=== PATIENT | male | born 1955 | race Caucasian/White ===

== ENCOUNTER 2022-09-05 11:26 | Day surgery (SDC) | payer BC, MEDICARE, SELFPAY ==
[2022-09-05] VITALS (14 sets, daily range): BP systolic 117–161; BP diastolic 84–122; PULSE 75–101; RESP 18–20; O2SAT 92–99; BMI 32.1
--- NOTE | 2022-09-05 | IR_ITS ---
APPROVED REPORT Patient Location: Outpatient Medical Assistant Internal Medicine: LULA Haas RT (R) PROCEDURES Selective coronary angiogram Drug-eluting stent deployment to the mid LAD INDICATION Systolic congestive heart failure, Coronary artery disease, Cardiomyopathy ejection fraction 25% Informed consent was obtained prior to the procedure. COMPLICATIONS None Estimated Blood Loss: Less than 10 mls TECHNIQUE One percent lidocaine used to anesthetize the right anterior aspect of the wrist. The right radial artery was accessed via the Seldinger technique. A 6 Turkmen sheath was placed in the right radial artery. 150 mg magnesium sulfate, 800 mcg of nitroglycerin, 1mg Lidocaine and 5000 U Heparin were given through the arterial sheath. The papa catheter was also used to perform selective coronary angiography. At the end the diagnostic angiogram therapeutic heparin was administered giving a therapeutic ACT and an EBU guide catheter was placed in the left main artery followed by Choice PT extra-support wire being placed distally into the LAD. A 2.5 x 34 mm resolute Mil stent was deployed at 12 kalli reducing the severe stenosis to 0%. NELLY-3 flow was present before and after the procedure. At the end of the procedure the apparatus was removed the sheath was removed good hemostasis was achieved using TR banding patient was transferred to the postop holding area in stable condition ANGIOGRAPHIC RESULTS The left main artery Has a smooth ostial 10 to 20% stenosis The left anterior descending artery Has mild 10% proximal mid vessel luminal irregularities followed by a mid vessel 80% with additional 50% stenoses. There is a moderate-sized high first diagonal artery which bifurcates into a medium size superior branch and a small to medium size inferior branch which is just under 2 mm in diameter. The inferior branch has tandem proximal 90% stenoses which originates immediately after the vessel bifurcates The circumflex artery Is a large dominant vessel and gives rise to a moderate sized ramus intermedius which has proximal 10 to 20% stenoses. The circumflex artery itself is a large vessel with 10% distal stenoses The right coronary artery Is a nondominant vessel is small in caliber and has proximal 10% stenosis The YU ventriculogram reveals Not performed The left ventricular end-diastolic pressure Not measured IMPRESSION Severe mid LAD disease as described above Successful stenting of the mid LAD severe disease reduced to 0% with 1 drug-eluting stent Persistent disease in a high first diagonal artery in which the 90% stenoses occur in a vessel less than 2 mm in diameter which is too small for drug-eluting stent PLAN 1. Plavix 75 mg daily plus aspirin 81 mg daily plus Eliquis 5 mg twice daily for 30 days 2. After 30 days continue Plavix 75 mg daily plus Eliquis 5 mg twice daily 3. LDL less than 55 to be achieved with high intensity statin. Start atorvastatin 20 mg daily for LDL of 104 4. Double carvedilol to 6.25 twice daily for better A-fib rate control as well as start Entresto 5. Placement of LifeVest prior to discharge home today or place LifeVest no later than tomorrow as an outpatient 6. Avoidance of tobacco products 7. Risk factor modification Electronically signed by : Miki Jama MD 09/05/2022 13:04:47
[2022-09-05 12:05] LABS: Chloride 104 mmol/L (98-107); Potassium 4.8 mmoL/L (3.5-5.1); Sodium 137 mmol/L (136-145)
[2022-09-05 12:08] LABS: Blood Urea Nitrogen 20 mg/dl (9-20); Creatinine Clearance Estimated 114 mL/min (50-200); Estimated Glomerular Filt Rate 75 ml/min (>60); GFR (African American) 90 ML/MIN (>60)
[2022-09-05 12:09] LABS: Anion Gap 11.8 mEq/L (5-15); Calcium 9.1 mg/dl (8.4-10.2); Carbon Dioxide 26 mmol/L (22.0-30.0); Glucose 97 mg/dl (74-100)
[2022-09-05 12:12] LABS: Basophils # 0.1 K/mm3 (0-0.2); Basophils % 0.7 % (0.1-2.0); Eosinophils # 0.3 K/mm3 (0.0-0.4); Eosinophils % 4.2 % (0.1-12.0); Hemoglobin 16.2 g/dL (14.1-18.0); Lymphocytes # 2.5 K/mm3 (0.7-4.5); Lymphocytes % 31.3 % (10-50); Mean Corpuscular Hemoglobin 30.9 pg (27.0-31.2); Mean Corpuscular Volume 93.6 fl (80-94); Mean Platelet Volume 9.4 fl (7.4-10.4); Monocytes # 0.4 K/mm3 (0.1-1.0); Monocytes % 4.9 % (1.7-9.3); Neutrophils # 4.7 K/mm3 (1.8-7.8); Platelet Count 185 K/mm3 (142-424); Red Blood Count 5.23 M/mm3 (4.60-6.20); Red Cell Distribution Width 14.2 % (11.5-17.5)
--- NOTE | 2022-09-05 16:14 | HMH.PHACL ---
[facility] Project Scheduler Discharge Med Caseworker Protective Services: Yossi eHrnandez has received discharge medication counseling on the following medications: -ASPIRIN (FOR CAD, DAILY, BLEED/BRUISE RISK, BUMP HEAD = GO TO ER TO RULE OUT HEAD BLEED, BLEED LOCATION AND APPEARANCE) -BRILINTA (BLOOD THINNER, TWICE DAILY, SOB POSSIBLE, BLEED/BRUISE RISK, BUMP HEAD = GO TO ER TO RULE OUT HEAD BLEED, BLEED LOCATION AND APPEARANCE) -ATORVASTATIN (FOR CHOLESTEROL, TAKE AT BEDTIME, MUSCLE PAIN/WEAKNESS POSSIBLE) -CARVEDILOL (FOR BLOOD PRESSURE, STOP 6.25 MG AND START 12.5 MG TWICE DAILY, DIZZINESS, LIGHTHEADEDNESS, SLOWED HEART RATE) -ENTRESTO (ON PREVIOUSLY, NO QUESTIONS) PATIENT AND HAD A FEW QUESTIONS REGARDING MEDICATIONS. FIRST WAS CONCERN WITH SOB AND BRILINTA PATIENT WAS ALREADY SOB. I ASKED SHADI WHO SAID THEY WERE GOING TO SEE HOW PATIENT TOLERATES BEFORE MAKING DECISION ON SWITCH TO PLAVIX. NEXT WAS CONCERN REGARDING BLOOD THINNERS, PATIENT'S THOUGHT SHE RECEIVED SAMPLES FOR XARELTO. PATIENT IS CURRENTLY ON ELIQUIS AND SHE HAD RECEIVED SAMPLES FOR ENTRESTO. ADVISED TO WATCH FOR BLEEDING RISK WHILE TAKING ELIQUIS, BRILINTA, AND ASPIRIN. FINALLY THERE WAS CONCERN REGARDING PATIENT'S DOSE OF CARVEDILOL. PATIENT STATES HE TAKES 3.125 MG AT HOME, BUT THE HOME MEDICATION RECONCILIATION HAD 6.25 MG THE HOME DOSE. SHADI WAS TO CLARIFY WITH DR POTTER IF HE WANTED THE PATIENT TO DOUBLE THE 3.125 MG TO 6.25 MG OR INCREASE TO THE 12.5 MG ORIGINALLY ORDERED. NO FURTHER QUESTIONS WERE PROVIDED AT THIS TIME.
[2022-09-05 16:41] LABS: CATHL Activated Clotting Time 305 SEC (74-125)
== END 2022-09-05 17:30 | disposition home or self-care (01) ==
PROVIDERS: PCP Internal Medicine; Visit Provider Internal Medicine
DX: R94.31 Abnormal electrocardiogram [ECG] [EKG] (principal); I50.20 Unspecified systolic (congestive) heart failure; I48.91 Unspecified atrial fibrillation; Z79.01 Long term (current) use of anticoagulants; I42.9 Cardiomyopathy, unspecified
CPT/HCPCS: 80048; 85025; 85347; 92928; 93454; 99152; 99153; C1725; C1760; C1769; C1876; C9600; J1644; Q9967

== ENCOUNTER → 2022-09-13 08:07 | Outpatient (CLI) | payer BC, SELFPAY ==
[2022-09-13 09:01] LABS: Hemoglobin A1C 5.1 % (4.0-6.0)
--- NOTE | 2022-09-13 10:19 | CT_ITS ---
FINAL REPORT TECHNIQUE: The patient was injected with IV contrast. Axial images were obtained through the chest in a PE protocol. 3-D reconstruction images were also performed. Individualized dose reduction techniques using automated exposure control or adjustment of the MA and/or KV according to patient's size were employed. CLINICAL HISTORY: dyspnea FINDINGS: Mediastinal vasculature is adequately opacified. No pulmonary artery filling defects are identified to suggest PE. There is no aortic dissection. There is no axillary adenopathy. There is no hilar or mediastinal adenopathy. The heart size is normal. There is no pericardial or pleural effusion. There is an 8 mm noncalcified nodule in the posterior left upper lobe well seen on image 111. The gallbladder is absent. There is a large benign-appearing cyst in left kidney measuring 9.3 x 7.0 cm. IMPRESSION: No pulmonary embolus or dissection. Left upper lobe nodule. Recommend 3 month follow-up as per Fleischners criteria. Reviewed, Interpreted and Dictated by Lele Maradiaga MD Transcribed by Shannon Mixon Authenticated and [facility]
== END ==
PROVIDERS: PCP Internal Medicine; Visit Provider Internal Medicine
DX: R06.00 Dyspnea, unspecified (principal); R06.81 Apnea, not elsewhere classified; I50.20 Unspecified systolic (congestive) heart failure; I42.9 Cardiomyopathy, unspecified; I48.91 Unspecified atrial fibrillation; E78.5 Hyperlipidemia, unspecified; R73.9 Hyperglycemia, unspecified; R94.31 Abnormal electrocardiogram [ECG] [EKG]; R06.83 Snoring
CPT/HCPCS: 36415; 71275; 83036; Q9967

== ENCOUNTER 2022-09-13 13:34 | Outpatient (RCR) | payer BC, MEDICARE, SELFPAY | END 2022-12-02 15:00 | disposition home or self-care (01) | LOC: PT 13:34 | PROVIDERS: Visit Provider Internal Medicine | DX: I25.10 Atherosclerotic heart disease of native coronary artery without angina pectoris (principal); Z95.5 Presence of coronary angioplasty implant and graft | CPT/HCPCS: 93798 ==

== ENCOUNTER → 2022-09-19 11:07 | Outpatient (CLI) | payer BC, SELFPAY | PROVIDERS: PCP Internal Medicine; Visit Provider Internal Medicine | DX: G47.33 Obstructive sleep apnea (adult) (pediatric) (principal); R06.83 Snoring; R06.00 Dyspnea, unspecified; I42.9 Cardiomyopathy, unspecified; I50.20 Unspecified systolic (congestive) heart failure | CPT/HCPCS: G0399 ==

== ENCOUNTER → 2022-10-11 13:27 | Outpatient (CLI) | payer BC, SELFPAY | PROVIDERS: PCP Internal Medicine; Visit Provider Internal Medicine | DX: R06.00 Dyspnea, unspecified (principal); I50.20 Unspecified systolic (congestive) heart failure; I25.10 Atherosclerotic heart disease of native coronary artery without angina pectoris; I42.9 Cardiomyopathy, unspecified; I48.91 Unspecified atrial fibrillation; E78.5 Hyperlipidemia, unspecified; R06.81 Apnea, not elsewhere classified; R06.83 Snoring; R94.31 Abnormal electrocardiogram [ECG] [EKG] | CPT/HCPCS: 93308 ==

== ENCOUNTER 2022-10-14 07:33 | Day surgery (SDC) | payer BC, SELFPAY ==
[2022-10-14 07:41] VITALS: BMI 33.0
[2022-10-14 07:48] VITALS: BP 124/76; PULSE 73; PULSE 80; RESP 20; O2SAT 97
[2022-10-14 10:32] VITALS: BP 96/46; PULSE 70; RESP 12; O2SAT 97
--- NOTE | 2022-10-14 10:33 | ECG_ITS ---
APPROVED REPORT Exam: Resting ECG HR:61 bpm ECG Measurements Heart Rate 61 AXES SC 177 P 2 QRSd 110 QRS -59 QT 433 T 47 QTc 437 Conclusion SINUS RHYTHM WITH FREQUENT SUPRAVENTRICULAR PREMATURE COMPLEXES LEFT AXIS DEVIATION [QRS AXIS < -30] LOW QRS VOLTAGE IN PRECORDIAL LEADS [QRS DEFLECTION < 1.0 mV IN CHEST LEADS] INCOMPLETE RIGHT BUNDLE BRANCH BLOCK [90+ ms QRS DURATION, TERMINAL R IN V1/V2, 40+ ms S IN I/aVL/V4/V5/V6] POSSIBLE ANTERIOR MYOCARDIAL INFARCTION , OF INDETERMINATE AGE [30 ms Q WAVE IN V3/V4, OR R < 0.2 mV IN V4] ABNORMAL ECG UNCONFIRMED REPORT Electronically signed by : Aakash Garcia MD 10/15/2022 15:52:57
[2022-10-14 10:35] VITALS: PULSE 70
[2022-10-14 10:45] VITALS: BP 87/48; PULSE 55; RESP 16; O2SAT 95
[2022-10-14 10:52] VITALS: BP 109/61; PULSE 57; RESP 16; O2SAT 95
--- NOTE | 2022-10-31 14:18 | P.PCN_ITS ---
[facility] Cardioversion Cardioversion Date: 10/14/22 Provider:: Miki Jama MD Procedure Performed:: Electrical cardioversion Diagnosis:: Atrial fibrillation Procedure Summary:: Patient was brought to the cardiac Hog Grader as an outpatient.? After informed consent was obtained, anesthesia provided sedation and patient received a single 200 J synchronized shock converting her from atrial fibrillation to sinus rhythm.? Patient tolerated the procedure well with no complications. Complications:: None Conculsion:: Successful electrical cardioversion from atrial fibrillation to sinus rhythm.
== END 2022-10-14 10:54 | disposition home or self-care (01) ==
PROVIDERS: PCP Internal Medicine; Visit Provider Internal Medicine
DX: I48.91 Unspecified atrial fibrillation (principal); I25.10 Atherosclerotic heart disease of native coronary artery without angina pectoris
CPT/HCPCS: 92960; 93005

== ENCOUNTER → 2022-12-21 13:35 | Outpatient (CLI) | payer MEDICARE, BC, SELFPAY ==
--- NOTE | 2022-12-21 14:11 | US_ITS ---
FINAL REPORT TECHNIQUE: Ultrasound images of the kidneys and bladder were obtained. CLINICAL HISTORY: Cyst of right kidney, acquired COMPARISON: None FINDINGS: The right kidney measures 10.8 cm in length. There is an 8.6 cm cyst in the upper pole of the right kidney. There is no hydronephrosis. The left kidney measures 11.9 cm in length. It is normal in echogenicity. There is no hydronephrosis. The urinary bladder is unremarkable. IMPRESSION: 8.6 cm right renal cyst. Reviewed, Interpreted and Dictated by Andrey Nguyen III, MD Transcribed by Meaghan Gaming Authenticated and [facility]
--- NOTE | 2022-12-21 14:11 | CT_ITS ---
FINAL REPORT TECHNIQUE: Axial images were obtained from the lung apex to the mid abdomen by computed tomography. Coronal reformatted images were obtained. This study was performed with techniques to keep radiation doses as low as reasonably achievable, (ALARA). Individualized dose reduction techniques using automated exposure control or adjustment of mA and/or kV according to the patient''s size were employed. CLINICAL HISTORY: pulm nodule COMPARISON: CT angiogram of the chest dated 09/13/2022 FINDINGS: There is no axillary adenopathy. There is no hilar or mediastinal adenopathy. Heart size is normal, however severe coronary artery calcifications are present.. There is no pericardial or pleural effusion. The lateral left upper lobe nodule noted on the prior CT of September is stable, and has not changed in size or appearance since that time. No new nodules or masses are identified. There is an 8.5 cm probable cyst partially imaged in the lower pole of the left kidney that appears stable since the prior CT. IMPRESSION: 8 mm lateral left upper lobe nodule, stable. Would recommend 6-month follow-up chest CT for further evaluation. Severe coronary artery calcifications. Left renal probable cyst was partially imaged on this exam but appears overall unchanged since September. Reviewed, Interpreted and Dictated by Andrey Nguyen III, MD Transcribed by Alana Jin Authenticated and [facility]
== END ==
PROVIDERS: PCP Internal Medicine; Visit Provider Internal Medicine
DX: I50.20 Unspecified systolic (congestive) heart failure (principal); R06.00 Dyspnea, unspecified; R91.8 Other nonspecific abnormal finding of lung field; N28.1 Cyst of kidney, acquired
CPT/HCPCS: 71250; 76770; 93308

== ENCOUNTER 2023-07-04 12:49 | Outpatient (CLI) | payer MEDICARE, SELFPAY ==
--- NOTE | 2023-07-04 13:02 | CT_ITS ---
FINAL REPORT TECHNIQUE: Axial images were obtained through the chest without contrast. CLINICAL HISTORY: Pulmonary nodules-maintenance fu 6month followup COMPARISON: 12/21/2022 FINDINGS: CT CHEST WITHOUT CONTRAST: Dense coronary artery calcifications are present. There is a left upper lobe nodule seen best in image #26 of series 2, measuring 7 mm in size. This was seen on the prior CT of December 2022 and is stable. There is a left lower pole renal cyst present measuring 9 x 7 cm, also stable in appearance. IMPRESSION: Left upper lobe nodule, stable since the prior CT of December 2022. Left lower pole renal cyst, also stable. Dense coronary artery calcifications are present. Reviewed, Interpreted and Dictated by Lele Maradiaga MD Transcribed by Alana Jin Authenticated and . [facility]
[2023-07-04 16:08] LABS: Alanine Aminotransferase 29 U/L (12-78); Alkaline Phosphatase 122 U/L (38-126); Aspartate Amino Transferase 29 U/L (17-59); Bilirubin,Direct 0.1 mg/dl (0.0-0.4); Bilirubin,Indirect 0.7 mg/dL (0.0-0.9); Bilirubin,Total 0.8 mg/dl (0.2-1.3); Bilirubin,Unconjugated 0.7 mg/dL (0.0-1.1); Chol/HDL Ratio 3.1 (1-3.5); Cholesterol 129 mg/dl (140-200); Creatine Kinase 47 U/L (55-170); HDL Cholesterol 42 mg/dl (40-60); Total Protein,Serum 6.8 g/dl (6.3-8.2); Triglycerides 43 mg/dl (30-150); VLDL Cholesterol 9 mg/dL (0-40)
[2023-07-04 16:19] LABS: Direct LDL Cholesterol 72.95 mg/dL (100-129)
== END 2023-07-04 23:59 ==
PROVIDERS: PCP Internal Medicine; Visit Provider Internal Medicine
DX: R91.8 Other nonspecific abnormal finding of lung field (principal); E78.5 Hyperlipidemia, unspecified; I25.10 Atherosclerotic heart disease of native coronary artery without angina pectoris; I48.91 Unspecified atrial fibrillation; I50.20 Unspecified systolic (congestive) heart failure; N28.1 Cyst of kidney, acquired; R53.83 Other fatigue; R94.31 Abnormal electrocardiogram [ECG] [EKG]; Z87.891 Personal history of nicotine dependence
CPT/HCPCS: 36415; 71250; 80061; 80076; 82550

== ENCOUNTER 2023-08-02 11:13 | Outpatient (CLI) | payer MEDICARE, SELFPAY ==
--- NOTE | 2023-08-02 11:17 | US_ITS ---
FINAL REPORT CLINICAL HISTORY: PVD, CAD, previous smoker, HTN, HLD, bilateral claudication with exercise. Ordered as a stress BRIAN FINDINGS: ANKLE-BRACHIAL PRESSURE INDICES Pressure indices are as follows: RIGHT LOWER EXTREMITY: Ankle-brachial pressure index: 1.4 Comments: Normal LEFT LOWER EXTREMITY: Ankle-brachial pressure index: 1.2 Comments: Normal IMPRESSION: No evidence of significant obstructive peripheral vascular disease of the lower extremities Reviewed, Interpreted and Dictated by Lele Maradiaga MD Transcribed by Meaghan Gaming Authenticated and [facility]
== END 2023-08-02 23:59 ==
LOC: RT 11:15
PROVIDERS: PCP Internal Medicine; Visit Provider Specialist
DX: R09.89 Other specified symptoms and signs involving the circulatory and respiratory systems (principal); I10 Essential (primary) hypertension; E78.5 Hyperlipidemia, unspecified; Z87.891 Personal history of nicotine dependence
CPT/HCPCS: 93924

== ENCOUNTER → 2023-08-21 10:05 | Outpatient (CLI) | payer MEDICARE, SELFPAY | LOC: SL 10:07 | PROVIDERS: PCP Specialist; Visit Provider Specialist | DX: G47.33 Obstructive sleep apnea (adult) (pediatric) (principal); G47.36 Sleep related hypoventilation in conditions classified elsewhere | CPT/HCPCS: G0399 ==

== ENCOUNTER 2024-01-05 11:44 | Outpatient (CLI) | payer MEDICARE, SELFPAY ==
--- NOTE | 2024-01-05 | CA_ITS ---
APPROVED REPORT Exam: Exercise Treadmill Technologist: Altagracia Jeffers, Ht: 6 ft 1 in Wt: 237 lbs BSA: 2.31 m2 HR: 66 bpm BP: 115/73 mmHg Rhythm: NSR Medical History Medications: Coreg,,,,, Plavix,,,,, ElIQUIS,,,,, EnTRESTO,,,,, Coenzyme Q10,,,,, Furosemide,,,,, Leqvio,,,,, Stress Test Details Test: Giancarlo HR Resting HR: 78 bpm Max Heart Rate (APMHR): 153 bpm Max HR Achieved: 169 bpm Target HR (85% APMHR): 130 bpm % of APMHR: 110 Recovery HR: 84 bpm HR response to stress: Normal HR response to stress BP Resting BP: 113.0/68.0 mmHg Max BP: 176.0/83.0 mmHg Recovery BP: 122.0/70.0 mmHg BP response to stress: Normal blood pressure response to stress. ECG Resting ECG: NSR, PACs & PVCs, low voltage QRS, cannot R/O old anterolateral FL Stress EC.[address] depression Arrhythmia: PACs, PVCs, ventricular couplets Recovery ECG: Return to baseline within 3 minutes of recovery Recovery Arrhythmia: PACs, PVCs Clinical Exercise duration: 05:31 min Highest Stage Achieved: II Exercise capacity: 7.0 METs Overall Exercise Capacity for Age: Average Stress ECG Conclusion The patient was able to exercise for a total of 5 minutes, 31 seconds. He achieved a total of 7.0 METS. He has average exercise capacity compared to age and sex matched peers. He has normal HR and BP response to exercise. Max HR: 150 % of PM: 98% Max BP: 176/82 METs: 7.0 Test stopped due to: SOA, Fatigue Symptoms: No CP. Arrhythmias/Ectopy: Frequent PACs. Frequent PVCs, occasional ventricular couplets ST-T Changes: 0.[address] depression Conclusion: Frequent PACs and PVCs during exercise and recovery. No significant ST changes at peak stress. Myoview images reported separately. Test Summary REST . . . . . . . Sitting REST . . . . . . . Standing REST 04:55 0.0 0.0 78 . 113/ 68 . . Stage 1 01:00 10.0 1.7 102 . . . . Stage 1 02:00 10.0 1.7 113 . . . . Stage 1 03:00 10.0 1.7 115 . . . . Stage 2 01:00 12.0 2.5 126 . 160/ 70 . . Stage 2 02:00 12.0 2.5 145 . 160/ 70 . . Stage 2 02:31 12.0 2.5 137 . 160/ 70 . Stop exercise at 05:31 RECOVERY 01:00 0.0 0.0 127 . . . . RECOVERY 02:00 0.0 0.0 115 . 176/ 83 . . RECOVERY 03:00 0.0 0.0 113 . 176/ 83 . . RECOVERY 04:00 0.0 0.0 113 . 127/ 79 . . RECOVERY 05:00 0.0 0.0 78 . 122/ 70 . . RECOVERY 05:19 0.0 0.0 78 . 122/ 70 . . Electronically signed by : Angeline Stinson MD 01/07/2024 01:12:33
--- NOTE | 2024-01-05 11:57 | NM_ITS ---
APPROVED REPORT Exam: Nuclear Stress Test Indication: hypertension..high cholesterol.. Patient Location: Outpatient Stress Tech: Altagracia SHI Tech:LULA Avalos RT(R)(N) Ht: 6 ft 0 in Wt: 235 lbs HR: 66 bpm BP: 115/73 mmHg BSA: 2.28 m2 Rhythm: NSR TID: 1.18 History: hypertension..high cholesterol.. Procedure: Patient exercised on Giancarlo protocol 5:31 minutes and sec, resting heart rate 66 bpm, resting blood pressure 115/73 mmHg, with exercise maximum heart rate achived was 150 bpm which is 98 % of the maximum predicted heart rate and blood pressure was 176/83 mmHg. Test was stopped due to fatigue. Patient denied any complaint of chest pain. Patient has Average exercise capacity, achieved 7.0 METs of workload on treadmill, the blood pressure response to exercise was Normal. Cardiac Stress and Resting SPECT Images: Cardiac Stress and Resting SPECT images were obtained using technetium 99m Myoview 32.4 mCi stress and 10.94 mCi at rest. Resting and stress imaging in supine position demonstrate medium sized, mild, fixed perfusion defect in the basal inferior LV wall. This is no longer visualized with prone stress imaging. Findings are suggestive of diaphragmatic attenuation. Gated imaging demonstrates normal global and regional LV systolic function. LVEF is calculated at 53%. Conclusion: Diaphragmatic attenuation is present. No evidence of fixed or reversible perfusion defects. Gated imaging demonstrates normal global and regional LV systolic function. LVEF is calculated at 53%. Of note, the patient developed frequent ectopy, including PACs, PVCs and ventricular couplets, during peak stress and in recovery. Electronically signed by : Angeline Stinson MD 01/07/2024 01:14:53
== END 2024-01-05 23:59 | disposition home or self-care (01) ==
LOC: RAD 11:47
PROVIDERS: PCP Internal Medicine; Visit Provider Internal Medicine
DX: I25.10 Atherosclerotic heart disease of native coronary artery without angina pectoris (principal); I73.9 Peripheral vascular disease, unspecified; Z78.9 Other specified health status; R53.83 Other fatigue; N28.1 Cyst of kidney, acquired; R91.8 Other nonspecific abnormal finding of lung field; I50.20 Unspecified systolic (congestive) heart failure; I42.9 Cardiomyopathy, unspecified; I48.91 Unspecified atrial fibrillation; R94.31 Abnormal electrocardiogram [ECG] [EKG]; Z87.891 Personal history of nicotine dependence; Z02.89 Encounter for other administrative examinations
CPT/HCPCS: 78452; 93017; 93018; A9502

== ENCOUNTER 2024-07-09 12:35 | Outpatient (CLI) | payer MEDICARE, SELFPAY ==
[2024-07-09 12:52] LABS: Basophils # 0.1 K/mm3 (0-0.2); Basophils % 0.6 % (0.1-2.0); Eosinophils # 0.2 K/mm3 (0.0-0.4); Eosinophils % 2.2 % (0.1-12.0); Hematocrit 41.6 % (42.0-52.0); Hemoglobin 13.8 g/dL (14.1-18.0); Lymphocytes # 2.3 K/mm3 (0.7-4.5); Lymphocytes % 28.1 % (10-50); Mean Corpuscular HGB Conc 33.2 g/dL (31.8-35.4); Mean Corpuscular Hemoglobin 29.4 pg (27.0-31.2); Mean Corpuscular Volume 88.7 fl (80-94); Monocytes # 0.5 K/mm3 (0.1-1.0); Monocytes % 5.6 % (1.7-9.3); Neutrophils # 5.3 K/mm3 (1.8-7.8); Neutrophils % 63.1 % (37.0-80.0); Platelet Count 241 K/mm3 (142-424); Red Blood Count 4.69 M/mm3 (4.60-6.20); Red Cell Distribution Width 14.5 % (11.5-17.5); White Blood Count 8.3 K/mm3 (4.8-10.8)
[2024-07-09 13:57] LABS: Alanine Aminotransferase 24 U/L (12-78); Albumin Level 4.3 g/dl (3.5-5.0); Alkaline Phosphatase 86 U/L (38-126); Anion Gap 14.1 mEq/L (5-15); Aspartate Amino Transferase 30 U/L (17-59); Bilirubin,Direct 0.3 mg/dl (0.0-0.4); Bilirubin,Indirect 0.5 mg/dL (0.0-0.9); Bilirubin,Total 0.8 mg/dl (0.2-1.3); Bilirubin,Unconjugated 0.5 mg/dL (0.0-1.1); Blood Urea Nitrogen 16 mg/dl (9-20); Calcium 9.4 mg/dl (8.4-10.2); Carbon Dioxide 26 mmol/L (22.0-30.0); Chloride 105 mmol/L (98-107); Chol/HDL Ratio 4.4 (1-3.5); Cholesterol 214 mg/dl (140-200); Estimated Glomerular Filt Rate 84 ml/min (>60); GFR (African American) 102 ML/MIN (>60); Glucose 95 mg/dl (74-100); HDL Cholesterol 49 mg/dl (40-60); Magnesium 1.7 mg/dl (1.6-2.3); Potassium 4.1 mmoL/L (3.5-5.1); Sodium 141 mmol/L (136-145); Total Protein,Serum 6.8 g/dl (6.3-8.2); Triglycerides 66 mg/dl (30-150); VLDL Cholesterol 13 mg/dL (0-40)
[2024-07-09 14:09] LABS: Direct LDL Cholesterol 146.55 mg/dL (100-129)
[2024-07-09 14:13] LABS: Free T4 (Free Thyroxine) 1.59 ng/dl (0.78-2.19)
[2024-07-09 14:30] LABS: Thyroid Stimulating Hormone 0.22 uIU/mL (0.465-4.68)
== END 2024-07-09 23:59 | disposition home or self-care (01) ==
LOC: LAB 12:37
PROVIDERS: PCP Internal Medicine; Visit Provider Internal Medicine
DX: R94.31 Abnormal electrocardiogram [ECG] [EKG] (principal); I48.91 Unspecified atrial fibrillation; I42.9 Cardiomyopathy, unspecified; E78.5 Hyperlipidemia, unspecified; I50.20 Unspecified systolic (congestive) heart failure; I25.10 Atherosclerotic heart disease of native coronary artery without angina pectoris; Z95.5 Presence of coronary angioplasty implant and graft; R91.8 Other nonspecific abnormal finding of lung field; N28.1 Cyst of kidney, acquired; R53.83 Other fatigue; I73.9 Peripheral vascular disease, unspecified; Z78.9 Other specified health status
CPT/HCPCS: 36415; 80048; 80061; 80076; 83735; 84439; 84443; 85025; 94762

== ENCOUNTER 2024-07-15 10:25 | Outpatient (CLI) | payer MEDICARE, SELFPAY ==
--- NOTE | 2024-07-15 10:27 | CA_ITS ---
APPROVED REPORT EXAM: Comprehensive 2D, Doppler, and color-flow Echocardiogram Journeyman Powerhouse Operator: Melissa Dawson CRT Ht: 6 ft 1 in Wt: 245lbs BSA: 2.35 BP: 101/63 mmHg Indications: Abnormal ECG, Atrial Fibrillation, CAD, Hyperlipidemia, Cardiomyopathy echo ef 12/21/22 55-60% echo ef 10/11/22 30-40% lifevest placed 2D Dimensions LA Volume 38.80 mL LA Volume Index 16.20 mL/m2 (M/F) 16-34 M-Mode Dimensions RVDd 3.35 cm (0.9-2.6) LA Diam 3.92 cm (1.9-4.0) LVDd 4.94 cm (3.5-5.7) LVDs 3.16 cm (3.5-5.7) IVSd 1.37 cm (0.6-1.1) PWd 1.01 cm (0.6-1.1) EF (Teich) 65.50% FS 36.00% EDV (Teich) 115.00 mL TAPSE 2.51 (<1.7) ESV (Teich) 39.70 mL LV Diastology E Decel Time 150 (160-240 msec) E/A Ratio 0.67 MED A' 10.80 cm/s LAT A' 10.50 cm/s Aortic Valve AO Peak GR. 4.50 mmHg Mitral Valve MV E Max Larry. 51.0 (40-130 cm/s) MV A Velocity 76.0 (40-130 cm/s) E/A Ratio 0.67 MV PHT 44.0 ms Pulmonary Valve PV Peak Velocity 107.0 (50-150 cm/s) Tricuspid Valve TR P. Velocity 197.00 cm/s RAP Estimate 10.00 mmHg RVSP 25.50 mmHg Left Ventricle The left ventricle is normal size. The left ventricular systolic function is normal. The left ventricular ejection fraction is within the normal range. There is increased LV wall thickness. There is normal LV segmental wall motion. Transmitral Doppler flow pattern suggests impaired LV relaxation. LVEF is 55%. Right Ventricle Right ventricle is mildly dilated. The right ventricular systolic function is normal. Atria The left atrium size is normal. The right atrium size is normal. There is no Doppler evidence of interatrial shunt. Aortic Valve Aortic valve is mildly thickened. There is no aortic valvular stenosis. No aortic regurgitation is present. Mitral Valve The mitral valve is normal in structure. No evidence of mitral valve stenosis. Trace mitral regurgitation. Tricuspid Valve Tricuspid valve is grossly normal in structure and function. Trace tricuspid regurgitation. There is insufficient TR jet to estimate RVSP. Pulmonic Valve The pulmonary valve is normal in structure. Trace pulmonic regurgitation. Great Vessels The aortic root is normal in size. The ascending aorta is normal in size. IVC is normal in size and collapses >50% with inspiration. Pericardium There is no pericardial effusion. Conclusion Normal biventricular systolic function. Mild RV dilation. No significant valvular stenosis or regurgitation. Electronically signed by : Angeline Stinson MD 07/21/2024 20:57:57
== END 2024-07-15 23:59 | disposition home or self-care (01) ==
LOC: RT 10:26
PROVIDERS: PCP Internal Medicine; Visit Provider Internal Medicine
DX: I51.7 Cardiomegaly (principal); I42.8 Other cardiomyopathies; I48.91 Unspecified atrial fibrillation; R94.31 Abnormal electrocardiogram [ECG] [EKG]; E78.5 Hyperlipidemia, unspecified
CPT/HCPCS: 93306

== ENCOUNTER 2024-12-04 12:01 | Outpatient (CLI) | payer MEDICARE, SELFPAY ==
--- OUTSIDE RECORDS SUMMARY | 2024-08-08 06:50 | XMS_ITS | Continuity of Care Document ---
Author Organization [facility] Address [address] [place] [address] Phone Care Team Providers Care Container Finishing Inspector Name Role Phone Miki Escobar MD Unavailable Unavailable Allergies, Adverse Reactions, Alerts Substance Reaction Status Criticality PENICILLIN Active No Information Medications Medication Instructions Dosage Effective Dates (start - stop) Status Comments diclofenac sodium 75 mg tablet,delayed release TAKE ONE TABLET BY MOUTH TWICE A DAY - Active diclofenac ER 100 mg tablet,extended release 24 hr take 1 tablet by oral route every day 100 MG - Active diclofenac ER 100 mg tablet,extended release 24 hr take 1 tablet by oral route every day 100 MG - Active Procedures Procedure Date Drain Or inject major jointor bursa Triamcinolone acetonide inj Bupivicaine Injection 0.5 mg Office/outpatient visit,est, mod 2023 Drain Or inject major jointor bursa X-ray exam of knee, 4+ views Triamcinolone acetonide inj Bupivicaine Injection 0.5 mg Office/outpatient visit,est, mod 2023 Drain Or inject major jointor bursa X-RAY EXAM HIP UNI 2-3 VIEWS Triamcinolone acetonide inj Bupivicaine Injection 0.5 mg Office/outpatient visit,est, mod 2022 Drain Or inject major jointor bursa X-RAY EXAM HIP UNI 2-3 VIEWS Triamcinolone acetonide inj Bupivicaine Injection 0.5 mg Physical Tx exercise Therapeutic activities (one on one) Neuromuscular re-edu Therapeutic activities (one on one) Physical Tx exercise Physical Tx exercise Manual therapy 1+ regions Therapeutic activities (one on one) Neuromuscular re-edu Physical Tx exercise Therapeutic activities (one on one) Neuromuscular re-edu Physical Tx exercise Neuromuscular re-edu Therapeutic activities (one on one) Physical Tx exercise Physical Tx exercise Neuromuscular re-edu Therapeutic activities (one on one) Neuromuscular re-edu Gait training therapy Physical Tx exercise Office/outpatient visit,est, mod 2022 Drain Or inject major jointor bursa X-RAY EXAM HIP UNI 2-3 VIEWS X-ray exam of knee, 4+ views Triamcinolone acetonide inj Bupivicaine Injection 0.5 mg Physical Tx exercise Neuromuscular re-edu Therapeutic activities (one on one) Neuromuscular re-edu Gait training therapy Physical Tx exercise Physical Tx exercise Neuromuscular re-edu Gait training therapy Neuromuscular re-edu Therapeutic activities (one on one) Physical Tx exercise Therapeutic activities (one on one) Neuromuscular re-edu Gait training therapy Physical Tx exercise Therapeutic activities (one on one) Neuromuscular re-edu Physical Tx exercise PT EVAL LOW COMPLEX 20 MIN Physical Tx exercise Neuromuscular re-edu Total hip arthroplasty &prosthesis PA Total Hip Arthoplasty & Prosthesis Ju Office/outpatient visit,est, mod 2022 X-RAY EXAM HIP UNI 2-3 VIEWS Office/outpatient visit,est, mod 2022 X-RAY EXAM HIPS BI 5/> VIEWS Office/outpatient visit,est, mod 2021 X-RAY EXAM HIP UNI 2-3 VIEWS DRAIN/INJ JOINT/BURSA W/US Methylprednisolone 80 MG inj Office/outpatient visit,est, mod 2020 MRI Lwr Ext Joint wo Contrast DRAIN/INJ JOINT/BURSA W/US Methylprednisolone 80 MG inj Marcaine Office/outpatient visit,est, mod 2020 Inject foramin, lumb/sacral, single Dexamethasone sodium phos Office/outpatient visit,est, mod 2020 Methylprednisolone 80 MG inj Njx interlaminar lmbr/sac Office/outpatient visit,est, mod 2020 MRI Lumbar Spine wo Contrast Office/outpatient visit,est, mod 2020 X-ray exam lwr spine, min 4 views Advance Directives Directive Yes / No Effective Date File Name No Information Encounters Encounter Description Practice Location Reason(s) For Visit Diagnoses Date Provider Providers Copied on Encounter [facility], [address] [place], [address], [place] tel:[phone] [facility] Bilateral primary osteoarthritis of knee 5 Luz Livingston. [address], [place], [place], [id number], [place]. tel:[phone] Referring Provider: Eulogio Proctor, [address] [place] [address] [address], [place], [address]. tel:[phone] Office/outpa tient visit,est, mod [facility], [address] [place], [address], [place] tel:[phone] [facility] Bilateral primary osteoarthritis of knee 4 Luz Livingston. [address], [place], [place], [id number], [place]. tel:[phone] Referring Provider: Eulogio Proctor, [address] [facility] [address], [place], [address]. tel:[phone] Office/outpa tient visit,est, mod [facility], [address] [place], [address], [place] tel:[phone] [address] [place] [address] Bilateral primary osteoarthritis of kneePresence of right artificial hip joint 4 Luz Livingston. [address], [place], [place], [id number], [place]. tel:[phone] Referring Provider: Tomas Starkey, [address] [place], [address]. tel:[phone] Office/outpa tient visit,est, mod [facility], [address] [place], [address], [place] tel:[phone] [facility] Bilateral primary osteoarthritis of kneePresence of right artificial hip joint 3 Luz Livingston. [address], [place], [place], [id number], [place]. tel:[phone] Referring Provider: Tomas Starkey, [address] [place] [address], [facility]. tel:[phone] [facility], [address] [place] [address], [address], [place] tel:[phone] [facility] Unilateral primary osteoarthritis, right hipPresence of right artificial hip joint Oct-0 4-202 3 Tommy Chaudhari. [address], [place], [place], [id number], [place]. tel:[phone] Referring Provider: Miki Escobar, [address], [place], [address] . tel:[phone] [facility], [facility] [place], [address], [place] tel:[phone] [facility] Unilateral primary osteoarthritis, right hipPresence of right artificial hip joint Sep-2 7- 3 Tommy Chaudhari. [address], [place], [place], [id number], [place]. tel:[phone] Referring Provider: Tomas Starkey, [address] [place] [address], [facility]. tel:[phone] [facility], [address] [place] [address], [address], [place] tel:[phone] [facility] Unilateral primary osteoarthritis, right hipPresence of right artificial hip joint Sep-2 0-202 3 Tommy Chaudhari. [address], [place], [place], [id number], [place]. tel:[phone] Referring Provider: Miki Escobar, [address], [place], [address] . tel:[phone] [facility], [facility] [place], [address], [place] tel:[phone] [facility] Unilateral primary osteoarthritis, right hipPresence of right artificial hip joint Sep-1 3-202 3 Tommy Chaudhari. [address], [place], [place], [id number], [place]. tel:[phone] Referring Provider: Tomas Starkey, [facility] [place], [address]. tel:[phone] [facility], [address] [place], [address], [place] tel:[phone] [facility] Unilateral primary osteoarthritis, right hipPresence of right artificial hip joint Feb-0 6 3 Hagins Watson. [address], [place], [place], [id number], [place]. tel:[phone] Referring Provider: Miki Escobar, [address], [place], [address] . tel:[phone] [facility], [facility] [place], [address], [place] tel:[phone] [facility] Unilateral primary osteoarthritis, right hipPresence of right artificial hip joint Jan-3 0 3 Hagorin Chaudhari. [address], [place], [place], [id number], [place]. tel:[phone] Referring Provider: Miki Escobar, [address], [place], [address] . tel:[phone] [facility], [facility] [place], [address], [place] tel:[phone] [facility] Unilateral primary osteoarthritis, right hipPresence of right artificial hip joint Jan-2 3 3 Hagroin Chaudhari. [address], [place], [place], [id number], [place]. tel:[phone] Referring Provider: Miki Escobar, [address], [place], [address] . tel:[phone] [facility], [address] [place], [address], [place] tel:[phone] [facility] Unilateral primary osteoarthritis, right hipPresence of right artificial hip joint 3 [place]. . Referring Provider: Miki Escobar, [address], [place], [address] . tel:[phone] Office/outpa tient visit,est, mod [facility], [address] [place], [address], [place] tel:[phone] [facility] Bilateral primary osteoarthritis of kneePresence of right artificial hip joint 3 Luz Livingston. [address], [place], [place], [id number], [place]. tel:[phone] Referring Provider: Tomas Starkey, [address] [place], [address]. tel:[phone] [facility], [facility] [place], [address], [place] tel:[phone] [facility] Unilateral primary osteoarthritis, right hipPresence of right artificial hip joint 3 [place]. . Referring Provider: Miki Escobar, [address], [place], [address] . tel:[phone] [facility], [address] [place], [address], [place] tel:[phone] [facility] Unilateral primary osteoarthritis, right hipPresence of right artificial hip joint 3 [place]. . Referring Provider: Miki Escobar, [address], [place], [address] . tel:[phone] [facility], [address] [place], [address], [place] tel:[phone] [facility] Unilateral primary osteoarthritis, right hipPresence of right artificial hip joint 3 [place]. . Referring Provider: Miki Escobar, [address], [place], [address] . tel:[phone] [facility], [address] [place], [address], [place] tel:[phone] [facility] Unilateral primary osteoarthritis, right hipPresence of right artificial hip joint 3 Tommy Chaudhari. [address], [place], [place], [address], [place]. tel:[phone] Referring Provider: Miki Escobar, [address], [place], [address] . tel:[phone] [facility], [address] [place], [address], [place] tel:[phone] [facility] Unilateral primary osteoarthritis, right hipPresence of right artificial hip joint 3 [place]. . Referring Provider: Miki Escobar, [address], [place], [address] . tel:[phone] [facility], [address] [place], [address], [place] tel:[phone] [facility] Unilateral primary osteoarthritis, right hipPresence of right artificial hip joint 3 Tommy Chaudhari. [address], [place], [place], [id number], [place]. tel:[phone] Referring Provider: Miki Escobar, [address], [place], [address] . tel:[phone] [facility], [address] [place], [address], [place] tel:[phone] [facility] Unilateral primary osteoarthritis, right hipPresence of right artificial hip joint 3 [place]. . Referring Provider: Miki Escobar, [address], [place], [address] . tel:[phone] [facility], [address] [place], [address], [place] tel:[phone] [facility] No Information 3 Luz Livingston. [address], [place], [place], [id number], [place]. tel:[phone] Referring Provider: Miki Escobar, [address], [place], [address] . tel:[phone] [facility], [address] [place], [address], [place] tel:[phone] [address] [place] [address] No Information 3 Elio Mariajose. [address], [place], [address], [place]. tel:[phone] Referring Provider: Miki Escobar, [address], [place], [address] . tel:[phone] [facility], [address] [place], [address], [place] tel:[phone] [address] [place] [address] Presence of right artificial hip joint 3 Luz Livingston. [address], [place], [place], [id number], [place]. tel:[phone] Referring Provider: Miki Escobar, [address], [place], [address] . tel:[phone] Office/outpa tient visit,est, mod [facility], [address] [place], [address], [place] tel:[phone] [address] [place] [address] Unilateral primary osteoarthritis, right hip 3 Luz Livingston. [address], [place], [place], [id number], [place]. tel:[phone] Referring Provider: Tomas Starkey, [address] [facility], [place], [address]. tel:[phone] [facility], [address] [place], [address], [place] tel:[phone] [address] [place] [address] No Information 3 Luz Livingston. [address], [place], [place], [id number], [place]. tel:[phone] Referring Provider: Manuel Vaz, [address] [place], [address]. tel:[phone] Office/outpa tient visit,est, mod [facility], [address] [place], [address], tel:[phone] [facility] Unilateral primary osteoarthritis, right hip 3 Luz Livingston. [address], [place], [place], [id number], [place]. tel:[phone] Specialist : Eulogio Proctor, [address] [facility] [address], [place], [address]. tel:[phone] erring Provider: Manuel Vaz, [address] [place], [address]. tel:[phone] [facility], [address] [place], [address], [place] tel:[phone] [facility] No Information 2 Luz Livingston. [address], [place], [place], [id number], [place]. tel:[phone] Referring Provider: Miki Escobar, [address], [place], [address] . tel:[phone] Office/outpa tient visit,est, mod [facility], [address] [place], [address], [place] tel:[phone] [facility] Unilateral primary osteoarthritis, right hip 2 Luz Livingston. [address], [place], [place], [id number], [place]. tel:[phone] Referring Provider: Miki Escobar, [address], [place], [address] . tel:[phone] [facility], [address] [place], [facility], [place] tel:[phone] 700 [facility] Pain in right hip 1 Milind Jackson. [address], [place], [facility], . tel:[phone] Referring Provider: Tomas Starkey, [address] [facility], [place], [place], [facility]. tel:[phone] Office/outpa tient visit,est, mod [facility], [address] [place], [place], [facility], [place] tel:[phone] [facility] Radiculopathy, lumbar regionUnilatera l primary osteoarthritis, right hip 1 Milind Jackson. [address] [place], [place], [facility], . tel:[phone] Referring Provider: Tomas Starkey, [address] [facility], [place], [place], [facility]. tel:[phone] [facility], [facility] [address] [place], [place], [facility], [place] tel:[phone] [facility] No Information 1 Bela Marin. [address] [place], [place], [facility], [place]. tel:[phone] Referring Provider: Tomas Starkey, [address] [facility], [place], [place], [facility]. tel:[phone] [facility], [address] [place], [place], [facility], [place] tel:[phone] [facility] Pain in right hip 1 Milind Jackson. [address] [place] [address], [facility], . tel:[phone] Referring Provider: Tomas Starkey, [address] [place], [place], [facility]. tel:[phone] Office/outpa tient visit,est, mod [facility], [facility] [address] [place], [place], [facility], [place] tel:[phone] [facility] Low back painPain in right hip 1 Bela Marin. [address], [place], [facility], . tel:[phone] Specialist : Eulogio Proctor, [address], [place], [address]. tel:[phone] erring Provider: Manuel Vaz, [address] [place], [address]. tel:[phone] [facility], [address] [place] [address], [facility], tel:[phone] [facility] Radiculopathy, lumbar region 1 Milind Jackson. [address] [place], [place], [facility], [place]. tel:[phone] Referring Provider: Tomas Starkey, [address] [place] [address], [facility]. tel:[phone] Office/outpa tient visit,est, [facility], [address] [place] [address], [facility], [place] tel:[phone] [facility] Intervertebral disc disorders w radiculopathy, lumbar regionOther intervertebral disc degeneration, lumbar region 1 Milind Jackson. [address] [place], [place], [facility], [place]. tel:[phone] Referring Provider: Tomas Starkey, [address] [place] [address], [facility]. tel:[phone] [facility], [address] [place] [address], [facility], [place] tel:[phone] [facility] Intervertebral disc disorders w radiculopathy, lumbar region 1 Milind Jackson. [address] [place], [address], [place]. tel:[phone] Referring Provider: Manuel Vaz, [address] [place] [address], [facility]. tel:[phone] Office/outpa tient visit,[facility], [address] [place] [address], [facility], tel:[phone] [facility] Radiculopathy, lumbar region 1 Milind Jackson. [address] [place] [address], [facility], . tel:[phone] Referring Provider: Manuel Vaz, [address] [place] [address]. tel:[phone] [facility], [address] [place] [address], [facility], tel:[phone] [facility] No Information 1 Milind Jackson. [address] [place] [address], [facility], . tel:[phone] Referring Provider: Manuel Vaz, [address] [place] [address], [facility]. tel:[phone] Office/outpa tient visit,[facility], [address] [place] [address], [facility], tel:[phone] [facility] Radiculopathy, lumbar regionOther intervertebral disc degeneration, lumbar region 1 Milind Jackson. [address] [place] [address], [facility], . tel:[phone] Referring Provider: Eulogio Proctor, [address] [facility] [address], [place], [address]. tel:[phone] Family History Family Member Type Diagnosis Age At Onset Mother Problem (finding) Congenital heart diseas e Mother Problem (finding) Diabetes mellitus Mother Problem (finding) Hypertension Father Problem (finding) Cancer Mother Problem (finding) Family history of Hyper lipidemia Payers Payer name Insurance type Covered constitution party ID Authorjas lance(s) [place] Medicare - [id number] Social History Type Description Quantity Date Captured Comments Alcohol Use Details Unknown Caffeine Use Details Unknown Tobacco Use Status No Information Smoking Status No Information Non-Smoking Tobacco Use Details : No Details Available : No Details Available Sex Male Vital Signs Date / Time: Height Weight BMI Pulse Rate Blood Pressure Temperature Respiratory Rate Body Surface Area Head Circumference Head Circ. Percentile Wt./Nelson. Percentile BMI percentile Pulse Ox Inhaled Ox 10:36 AM 73.00 in 108.862 kg (240.00 lbs) 31.6 6 kg/m eter (2) Chief Complaint And Reason For Visit No Information Reason For Referral Reason For Referral No Information Plan Of Treatment Date Type Action Status Future Order: Radiology Order MR I Hip WO Contrast ([id number]), Collected on: , Sent on: Sent Future Order: Radiology Order MR I Lumbar Spine W Contrast ([id number]), Ordered on: Ordered Future Order: Radiology Order MR I Lumbar Spine WO Contrast ([id number]), Collected on: , Sent on: Sent Future Order: Radiology Order MR I Lumbar Spine WO Contrast ([id number]), Ordered on: Ordered History Of Present Illness Encounter Date Complaint History Of Prese nt Illness hip Functional Status Date Functional Assessmen t No Information Instructions Date Instruction Additional Infor mation No Information Assessments Type Assessment Date No Information Patient Care Teams Name Effective Dates (start - stop) Status Members No Information
--- OUTSIDE RECORDS SUMMARY | 2024-12-04 12:02 | XMS_ITS | Clinical Summary ---
Author Organization [facility] Address [address] [place] [address] Phone Care Team Providers Care Manpower Development Advisor Name Role Phone Nirav Shelton MD [phone] Conditions or Problems Problem Name Problem Code Onset Date Status Entry Date Provider Comment Standard Description Annotate LUMBAR STENOSIS, L1-L5, W/O NEUROGENIC CLAUDICATION M48.061 (ICD-10-CM ) 01/14 Active 01/14 Nina Pinto Spinal stenosis, lumbar region without neurogenic claudication Obstructive sleep apnea 00024163 (SNOMED CT) 10/23 Active 01/08 Nina Pinto Obstructive sleep apnea syndrome Imported from [facility]: [employer] ( at 11:44:33 AM) Hypoxemia 802199953 (SNOMED CT) 10/23 Active 01/08 Nina Pinto Hypoxemia Imported from [facility]: [employer] ( at 11:44:33 AM) History of spinal stenosis Z87.39 (ICD-10-CM ) 08/31 Active 01/08 Nina Pinto Personal history of other diseases of the musculoskeletal system and connective tissue Imported from [facility]: [employer] ( at 11:44:33 AM) Medications Medication Instructions Start Date Stop Date Generic Name [facility] Provider SILDENAFIL CITRATE 100 MG TABS Take /2-1 whole tab daily prn. 6 sildenafiL (VIAGRA) 100 mg Oral Tablet [id number] Nina Pinto multivit-min/F A/lycopen/lute in (CENTRUM SILVER MEN ORAL) Take by mouth daily. multivit-min/ FA/lycopen/viviane tein (CENTRUM SILVER MEN ORAL) Nina Pinto DICLOFENAC SODIUM 75 MG TBEC Take 1 Tab by mouth 2 times daily (with meals). 9 diclofenac (VOLTAREN) 75 mg Oral Tablet, Delayed Release (E. [id number] Nina Pinto Medications Administered No information available. Allergies, Adverse Reactions, Alerts Allergy Name Reaction Description Start Date Severity Statu s Provider PENICILLINS Hives Mild Nina gomez Results No information available. Plan of Care No information available. Procedures No information available. Vital Signs Date Name Value Unit Description BMI (Body Mass Index) 37.82 kg/m2 Bod y Mass Index (Ratio) Height 74 [in_us] height E&M Weight Measured 294.6 [lb_av] weight E& M Weight Measured 294.6 [lb_av] weight E& M Immunizations No information available. Advance Directives No information available.
--- OUTSIDE RECORDS SUMMARY | 2024-12-04 12:03 | XMS_ITS | Encounter Summary ---
Author Organization [facility] [place] [address] Care Team Providers Care Co Founder And Director Name Role Phone Proctor, Eulogio Booker Primary Care Provider Encounter Details Date Type Department Care Team (Late st Contact Info) Description 12/24/2014 Orders Only SEP Gastro [facility] [address] [place] [phone] Jose Juan Black MD [address] [place] [address] Social History Tobacco Use Types Packs/Day Years Used Date Smoking Tobacco: Former Smokeless Tobacco: Never Alcohol Use Standard Drinks/Week Comments Yes 0 (1 standard drink = 0.6 oz pur e alcohol) OCCASION Sex and Gender Information Value Date Recorded Sex Assigned at Not on file Legal Sex Male 6:44 AM EDT Gender Identity Not on file Sexual Orientation Not on file documented as of this encounter Plan of Treatment Upcoming Encounters Date Type Department Care Team (Late st Contact Info) Description 01/02/2025 11:45 AM EDT Office Visit SEP Dermatology [facility] [address] [place] [address] [address] [place] [address] Aneudy Lanier MD [address] [place] [address] documented as of this encounter Goals Goal Patient Goal Type Associated Problems Recent Progress Patient-Stated? Author Blood Pressure < 140/90 Blood Pressure 120/74(2023 8:47 AM EDT) No Karina Morton PA-C LDL Direct < 130 Result Component No Karina Morton PA-C HEMOGLOBIN A1C < 7.0 Result Component No Karina Morton PA-C documented as of this encounter Procedures Procedure Name Priority Date/Time Associated Diagnosis Comments GMED COLONOSCOPY Routine 12/24/2014 12:3 0 PM EDT documented in this encounter Results * GMED COLONOSCOPY (12/24/2014 12:30 PM EDT) 12/24/2014 12:3 0 PM EDT Impressions [facility] - 12/24/2014 1:13 PM EDT Polyp (6 mm) in the distal sigmoid colon. (Polypectomy). Mild diverticulosis of the the left side of the colon. Plan: Await pathology results Colonoscopy in 5-10 years depending on pathology results. Follow-up with referring provider / physician This section is an excerpt of the full report. Jose Juan Black MD GI PROCEDURE ORDERABLES Fin al Result Performing Organization Address City/State/[facility] Co de Phone Number [facility] [address] [place] [address] documented in this encounter Visit Diagnoses Not on filedocumented in this encounter Additional Health Concerns Infection Onset Date Last Indicated Resolved Time R/O C-Diff 12/20/2022 12/20/2022 12/20/2022 8:34 PM EDT documented as of this encounter Care Teams Co Founder And Director Relationship Specialty Start Date End Date Eulogio Proctor DO [address] [address] [address] [place] [address] PCP - General Internal Medicine 12/12/14 documented as of this encounter
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
--- OUTSIDE RECORDS SUMMARY | 2024-12-04 12:03 | XMS_ITS | Clinical Summary ---
Author Organization Healthcare Address [address] [place] [address] Care Team Providers Care Porcelain Enamel Laborer Name Role Phone Eulogio Proctor DO Primary Care Provider [phone] Allergies Active Allergy Reactions Criticality Noted Date Comments Penicillins Hives Medium 12/19/1962 Medications Eliquis 5 MG tablet 01/23/2023 Active atorvastatin (Lipitor) 40 MG tablet 01/23/2023 Active carvedilol (Coreg) 25 MG tablet 01/26/2023 Active clopidogrel (Plavix) 75 MG tablet 01/23/2023 Active furosemide (Lasix) 40 MG tablet 01/23/2023 Active Multiple Vitamins-Mineral s (Multivitamin Adult, Minerals,) tablet 06/12/2005 Active Entresto 49-51 MG tablet 01/23/2023 Active sildenafil (Viagra) 100 MG tablet Take 1 tablet (100 mg) by mouth. Active Family History Medical History Relation Name Comments Cancer Father Salazar Hernandez Heart disease Mother Angela Hernandez Relation Name Status Comments Father Salazar Hernandez Mother Angela Hernandez Social History Tobacco Use Types Packs/Day Years Used Date Smoking Tobacco: Former Cigarettes 1 15 Smokeless Tobacco: Never Tobacco Cessation:Counseling Given: Not Answered Alcohol Use Standard Drinks/Week Comments Yes 3 (1 standard drink = 0.6 oz pur e alcohol) Sex and Gender Information Value Date Recorded Sex Assigned at Not on file Legal Sex Male 2:57 PM EDT Gender Identity Not on file Sexual Orientation Not on file Last Filed Vital Signs Vital Sign Reading Time Taken Comments Blood Pressure 105/68 01/15/2024 2:46 PM EDT Pulse 62 01/15/2024 2:46 PM EDT Temperature 35.9 C (96.7 F) 01/15/2024 2:46 PM EDT Respiratory Rate - - Oxygen Saturation 100% 01/15/2024 2:46 PM EDT Inhaled Oxygen Concentration - - Weight 108 kg (239 lb) 01/15/2024 2:46 PM EDT Height 185.4 cm (6' 1 ) 01/15/2024 2:46 PM EDT Body Mass Index 31.53 01/15/2024 2:46 PM EDT Plan of Treatment Health Maintenance Due Date Last Done Comments Dental Oral Exam 1955 Dental Prophylaxis 1955 Dental X-Ray: Bitewings 1955 Dental X-Ray: Full Mouth 1955 [facility]-Depression Screening 1955 [facility]-Medicare Annual Wellness (AWV) 1955 [facility]-/Child/Adol SDOH Screenings 1955 [facility]- SDOH Screenings 02/21/1974 [facility]-Adult SDOH Screenings 02/21/1974 [facility]-DTaP,Tdap,and Td Vaccines (1 - Tdap) 02/21/1975 CT Colonography 02/21/2001 Colonoscopy 02/21/2001 FIT-DNA 02/21/2001 FIT 02/21/2001 FOBT 02/21/2001 Sigmoidoscopy 02/21/2001 [facility]-Colorectal Cancer Screening 02/21/2001 [facility]-Zoster Vaccines (1 of 2) 02/21/2006 [id number] Vaccine (3 - season) 2024 09/28/2020, 08/26/2020 [facility]-Influenza Vaccine (Season Ended) 2025 [facility]-RSV Vaccine: 60+ Years or (1 - 1-dose 75+ series) 02/21/2031 [facility]-Hepatitis C Screening Completed 11/25/2016 [facility]-Pneumococcal Vaccine: 50+ Years Completed 01/09/2024 [facility]-Obesity Intervention Completed 024, 11/21/2023, 10/27/2023, Additional history exists HPV Vaccines Aged Out No longer eligi ble based on patient's age to complete this topic [facility]-HIB Vaccines Aged Out No longer e ligible based on patient's age to complete this topic [facility]-Hepatitis A Vaccines Aged Out No longer eligible based on patient's age to complete this topic [facility]-IPV Vaccines Aged Out No longer e ligible based on patient's age to complete this topic [facility]-Rotavirus Vaccines Aged Out No lo nger eligible based on patient's age to complete this topic Insurance [facility] MEDICARE Care Teams Porcelain Enamel Laborer Relationship Specialty Start Date End Date Eulogio Proctor DO [address] [address] [address] [place] [address] PCP - General 07/17/23
--- OUTSIDE RECORDS SUMMARY | 2024-12-04 12:03 | XMS_ITS | Encounter Summary ---
Author Organization [facility] Address [address] [place] [address] Care Team Providers Care Compliance Examiner Name Role Phone Mark Proctorun BookerClarence FARLEY Primary Care Provider [phone] Encounter Details Date Type Department Care Team (Late st Contact Info) Description 12/15/2022 Orders Only Laboratory [address], [place] [address] Miki Escobar MD [facility] [employer] [facility] [address] [place], [place] [id number] Primary osteoarthritis of right hip (Primary Dx); Osteoarthritis of right hip, unspecified osteoarthritis type Social History Tobacco Use Types Packs/Day Years Used Date Smoking Tobacco: Never Assessed Sex and Gender Information Value Date Recorded Sex Assigned at Male 12/20/2022 4:23 PM EDT Legal Sex Male 12:39 PM EDT Gender Identity Male 12/20/2022 4:23 PM EDT Sexual Orientation Straight 12/20/2022 4: 23 PM EDT COVID-19 Exposure Response Date Recorded In the last 10 days, have yo u been in contact with someone who was confirmed or suspected to have Coronavirus/COVID-19? No / Unsure 12/15/2022 2:47 PM EDT documented as of this encounter Plan of Treatment Not on file documented as of this encounter Results * (ABNORMAL) STAPH AUREUS CULT, SWAB (12/15/2022 2:48 PM EDT) Culture Result: Moderate Growth :Staph. aureus :No Penicillin Binding Protein (PBP2a) detected. -- The isolate is Susceptible to Methicillin, Oxacillin, all beta-lactamase stable penicillins, beta-lactamase inhibitor combinations, relevant cephalosporins, and carbapenems. (H) [facility] Swab (Nasal Left) 12/15/2022 2:48 PM EDT 12/15/2022 9:21 PM EDT Miki Escobar MD MICROBIOLOGY - NON-BLOOD FLUIDS AND OTHER Final Result Performing Organization Address [facility] de Phone Number [facility] [address] * HGB, A1C (GLYCOHEMOGLOBIN) (12/15/2022 2:48 PM EDT) Hgb A1C 5.1 4.0 - 5.6 % [facility] Comment: Reference Ranges for Hgb A1c: Increased risk for diabetes: 5.7-6.4% Probable diabetes: >=6.5% Desired control for previously diagnosed diabetics: <7.0% Many conditions can affect the Hgb A1c value including hemolysis, recent transfusion, hemoglobin variants, thalassemias, severe chronic hepatic and renal disease and iron deficiency among others. Please note that results from this assay are invalid for patients with abnormal amounts of Hemoglobin (HbF). Results must be interpreted in the proper clinical context. This method is certified by the National Glycohemoglobin Standardization program (NGSP) and traceable to [facility]. Estimated Average Glucose 100 68 - 114 mg/dL [facility] Whole Blood 12/15/2022 2:48 PM EDT 12/15/2022 6:46 PM EDT Miki Escobar MD CHEMISTRY ORDERABLES Alisia l Result Performing Organization Address [facility] Co de Phone Number [facility] [address] * URINE CULTURE TUBE COLLECTION (12/15/2022 2:48 PM EDT) Pathologist [facility] Urine Culture Pending Culture not Indicated [facility] Urine 12/15/2022 2:48 PM EDT 12/15/2022 6:05 PM EDT Miki Escobar MD URINE ORDERABLES Final Re sult Performing Organization Address [facility] Co de Phone Number [facility] [address] * URINALYSIS WITH REFLEX TO CULTURE (12/15/2022 2:48 PM EDT) Color, UA Yellow Yellow,Straw [facility] EXT ERNAL LAB Clarity, UA Clear Clear [facility] EXTE RNAL LAB Glucose, UA Negative Negative mg/dL [facility] Bilirubin, UA Negative Negative [facility] EX TERNAL LAB Ketones, UA Negative Negative mg/dL [facility] Spec Grav, UA 1.013 1.005 - 1.035 [facility] Blood, UA Negative Negative [facility] pH, Urine 6.0 5.0 - 8.0 [facility] Protein, UA Negative Negative mg/dL [facility] Urobilinogen, UA <2.0 <2.0 mg/dL [facility] Nitrite, UA Negative Negative [facility] EXTE RNAL [facility] Leukocyte esterase UA Negative Negative [facility] Urine 12/15/2022 2:48 PM EDT 12/15/2022 6:06 PM EDT Narrative [facility] - 12/15/2022 6:28 PM EDT Microscopic testing is not performed when the dipstick is negative for blood, leukocyte, protein and nitrite. Miki Escobar MD URINE ORDERABLES Final Re sult Performing Organization Address [facility] Co de Phone Number [facility] [address] * TYPE AND SCREEN (12/15/2022 2:48 PM EDT) ABORh O [facility] Rh Type Negative [facility] Blood 12/15/2022 2:48 PM EDT 12/15/2022 4:32 PM EDT Miki Escobar MD BLOOD BANK TEST ORDERABLE S Final Result Performing Organization Address [facility] de Phone Number [facility] [address] * (ABNORMAL) PT (PRO TIME INCLUDES INR) (12/15/2022 2:48 PM EDT) Protime 17.5(H) 10.3 - 13.9 seconds [facility] INR 1.4(H) 0.9 - 1.1 [facility] Comment: RECOMMENDED THERAPEUTIC RANGES USING INR : Stable Oral Anticoagulant Therapy: 2.0 - 3.0 Mechanical Prosthetic Heart Valve: 2.5 - 3.5 Recurrent Acute Myocardial Infarction: 2.5 - 3.5 Plasma 12/15/2022 2:48 PM EDT 12/15/2022 5:54 PM EDT Miki Escobar MD HEMATOLOGY ORDERABLES Fin al Result Performing Organization Address [facility] de Phone Number [facility] [address] * APTT (12/15/2022 2:48 PM EDT) PTT 36.4 23.1 - 37.6 seconds [facility] Plasma 12/15/2022 2:48 PM EDT 12/15/2022 5:54 PM EDT Miki Escobar MD HEMATOLOGY ORDERABLES Fin al Result Performing Organization Address [facility] de Phone Number [facility] [address] * (ABNORMAL) BASIC METABOLIC PANEL (BMP=EP1) (12/15/2022 2:48 PM EDT) Sodium 142 135 - 146 mmol/L [facility] Potassium 3.9 3.5 - 5.1 mmol/L [facility] Chloride 107 98 - 110 mmol/L [facility] CO2 26 22 - 29 mmol/L [facility] Anion Gap 9 5 - 13 mmol/L [facility] Comment:Anion gap calculatio n does not include potassium (K+) value. BUN 19 7 - 25 mg/dL [facility] Creatinine 1.01 0.50 - 1.30 mg/dL [facility] Glucose 113(H) 71 - 99 mg/dL [facility] Comment:Reference range (71- 99 mg/dL) refers only to fasting samples, and does not apply to non-fasting samples. eGFR CKD-EPI 2020 82 See Note [facility] Comment: eGFR calculated with 2020 CKD-EPI equation using creatinine, patient's age and gender. Other factors, especially muscle mass, may affect accuracy and need to be considered. Patient values should be interpreted as a trend. The reference interval is >60 mL/min/1.73m2. Calcium 8.8 8.5 - 10.5 mg/dL [facility] Comment:Effective 10/13/2022, the calcium reference range has been updated. BUN/Creatinine Ratio 19 [facility] Serum (Serum) 12/15/2022 2:4 8 PM EDT 12/15/2022 7:56 PM EDT us Miki Escobar MD CHEMISTRY ORDERABLES Alisia l Result [facility] [address] * (ABNORMAL) CBC WITH DIFFERENTIAL (12/15/2022 2:48 PM EDT) WBC 5.74 3.80 - 10.80 10*3/uL [facility] RBC 4.18(L) 4.20 - 5.80 10*6/uL [facility] Hemoglobin 13.4 13.2 - 17.1 g/dL [facility] Hematocrit Blood 39.2(L) 40.0 - 51.0 % [facility] MCV 93.8 80.0 - 100.0 fL [facility] MCH 32.1 27.0 - 33.0 pg [facility] MCHC 34.2 30.0 - 36.0 g/dL [facility] RDW 13.6 11.0 - 15.0 % [facility] Platelets 134(L) 140 - 400 10*3/uL [facility] MPV 11.9 9.0 - 13.0 fL [facility] Whole Blood 12/15/2022 2:48 PM EDT 12/15/2022 6:46 PM EDT us Miki Escobar MD HEMATOLOGY ORDERABLES Fin al Result [facility] [address] documented in this encounter Visit Diagnoses Diagnosis Osteoarthritis of right hip, unspecified osteoarthritis type Osteoarthritis of right hip, unspecified osteoarthritis type documented in this encounter Care Teams Compliance Examiner Relationship Specialty Start Date End Date Eulogio Proctor DO [address] [facility] [address] [place] [address] PCP - General Internal Medicine 12/27/22 documented as of this encounter
--- OUTSIDE RECORDS SUMMARY | 2024-12-04 12:03 | XMS_ITS | Clinical Summary ---
Author Organization [facility] Address [address] [place], [place] [address] Care Team Providers Care Human Resources Hr Representative Name Role Phone Eulogio Proctor DO Primary Care Provider [phone] Allergies Active Allergy Reactions Criticality Noted Date Comments Penicillins Hives Low 04/12/2022 Medications carvediloL (COREG) 25 mg Tablet Take 25 mg by mouth 2 times daily (with meals). Active atorvastatin (LIPITOR) 40 mg Tablet Take 40 mg by mouth every evening. Active clopidogreL (PLAVIX) 75 mg tablet Take 75 mg by mouth daily. Active sacubitriL-vals yissel (Entresto) 49-51 mg Tablet Take 1 Tablet by mouth 2 times daily. Active furosemide (LASIX) 40 mg tablet Take 40 mg by mouth daily. Active sildenafiL (VIAGRA) 100 mg Tablet Take 100 mg by mouth daily as needed for Erectile Dysfunction. Active mo-ixa-wfzps-K1 -lycopen-lutein (Centrum Silver Men) [phone] mcg Tablet Take 1 Tablet by mouth daily. Do not take this for 4 weeks 0 01/25/2023 Active apixaban (Eliquis) 5 mg Tablet Take 1 Tablet (5 mg) by mouth 2 times daily. Resume this dose on 01-04-23 01/04/2023 Active ondansetron (ZOFRAN) 4 mg tablet Take 1 Tablet (4 mg) by mouth every 6 hours as needed for Nausea. 20 Tablet 12/28/2022 12:35 PM EDT 12/28/2022 Active Active Problems Problem Noted Date Diagnosed Date Osteoarthritis of right hip 12/27/2022 Family History Medical History Relation Name Comments Cancer Father Heart Problems Mother Stroke Mother Anesthesia Complications Neg Hx Relation Name Status Comments Father Mother Social History Tobacco Use Types Packs/Day Years Used Date Smoking Tobacco: Former Cigarettes 1 0 - 1984 Smokeless Tobacco: Never Tobacco Cessation:Counseling Given: Not Answered Alcohol Use Standard Drinks/Week Comments Yes 0 (1 standard drink = 0.6 oz pur e alcohol) social Sex and Gender Information Value Date Recorded Sex Assigned at Male 12/20/2022 4:23 PM EDT Legal Sex Male 12:39 PM EDT Gender Identity Male 12/20/2022 4:23 PM EDT Sexual Orientation Straight 12/20/2022 4: 23 PM EDT Last Filed Vital Signs Vital Sign Reading Time Taken Comments Blood Pressure 110/61 12/28/2022 11:20 AM EDT Pulse 69 12/28/2022 11:20 AM EDT Temperature 36.8 C (98.3 F) 12/28/2022 11:20 AM EDT Respiratory Rate 20 12/28/2022 11:2 0 AM EDT Oxygen Saturation 94% 12/28/2022 11: 20 AM EDT Inhaled Oxygen Concentration - - Weight 110.3 kg (243 lb 2.7 oz) 12/27/2022 5:43 PM EDT Height 185.4 cm (6' 1 ) 12/27/2022 5:43 PM EDT Body Mass Index 32.08 12/27/2022 5:43 PM EDT Plan of Treatment Health Maintenance Due Date Last Done Comments Cologuard 1955 Colonoscopy 1955 Colorectal Cancer Screening 1955 FIT 1956 Lipid Monitoring 02/21/1973 Tetanus Vaccination (Every 10 Years) 02/21/1974 Hepatitis C Virus (HCV) Screening 02/21/1977 Pneumococcal Vaccine: 50+ Years (1 of 1 - PCV) 006 Zoster-RZV(Shingrix) (1 of 2) 02/21/2006 Fall Risk Assessment 02/21/2021 COVID-19 Vaccine ( - 2023- season) 2024 Advance Care Planning 06/12/2024 Depression Screening 06/12/2024 Influenza Vaccination (Season Ended) 2025 RSV Vaccines (1 - 1-dose 75+ series) 02/21/2031 Medical Devices Implanted Type Area Publicity Writer Device Identifier Shelf Expiration Date Model / Serial / Lot Delt Cer Hd 05/25 36mm +5 - [id number] Implanted:Qty: 1 on 12/27/2022 by Miki Escobar MD at [facility] Right: Hip [employer] \T\ [employer] 10/10/2027 [id number] / / [id number] Bison Altrx Polyethylene Acetabular Liner Neutral 36mm Id X 58mm Od - [id number] Implanted:Qty: 1 on 12/27/2022 by Miki Escobar MD at [facility] Right: Hip * J \T\ J DEPU[employer] 08/10/2027 [id number] / / [id number] Femoral Stem 05/25 Taper Actis Duofix Hip Prosthesis Cementless Size 6 Std Collar - [id number] Implanted:Qty: 1 on 12/27/2022 by Miki Escobar MD at [facility] Right: Hip * J \T\ J [employer] 09/09/2032 [id number] / / [id number] Cup Acetab Sector 58mm - [id number] Implanted:Qty: 1 on 12/27/2022 by Miki Escobar MD at [facility] Right: Hip * J \T\ J [employer] 08/09/2032 [id number] / / [id number] Hip Ceramic On Poly - [id number] Implanted:Qty: 1 on 12/27/2022 by Miki Escobar MD at [facility] Right: Hip [employer] \T\ [employer] [id number] / / Insurance MEDICARE Member Subscriber Plan / Payer (Ef fective 2021-Present) Name:Yossi Oliver Member ID:[id number] Relation to Subscriber:Self Name:Yossi Oliver Subscriber ID:[id number] Payer ID:[id number] Group ID:Not on file Type:Medicare Address: [facility] J15 PART A [facility] [address] [address] [place] [address] ANTHEM Advance Directives For more information, please contact: [phone] * Full Code (Latest Code Status on File) Date Activated Date Inactivated Comments 12/27/2022 12:22 PM No automated chest compression devices for VAD Patients Care Teams Human Resources Hr Representative Relationship Specialty Start Date End Date Eulogio Proctor DO [facility] [facility] [address] [place] [phone] PCP - General Internal Medicine 12/27/22
--- OUTSIDE RECORDS SUMMARY | 2024-12-04 12:03 | XMS_ITS | Encounter Summary ---
Author Organization [facility] [place] [address] Care Team Providers Care Microwave Engineer Name Role Phone Eulogio Proctor DO Primary Care Provider [phone] Reason for Visit * Reason Onset Date Comments Symptoms (Only Use If Pt Pus hes Back On Scheduling A Visit) 09/23/2024 Sore throat, cough and conge stion Encounter Details Date Type Department Care Team (Late st Contact Info) Description 09/23/2024 Telephone [place] [place] [address] [facility] [address] [place] [address] Eulogio Proctor DO [address] [facility] [address] [place] [address] Symptoms (Only Use If Pt Pushes Back On Scheduling A Visit) (Sore throat, cough and congestion ) Social History Tobacco Use Types Packs/Day Years Used Date Smoking Tobacco: Former Cigarettes Smokeless Tobacco: Never Comments:quit in 1985 Alcohol Use Standard Drinks/Week Comments Yes 0 (1 standard drink = 0.6 oz pur e alcohol) occasionally PHQ-2 Answer Date Recorded PHQ-2 Total Score 0 01/09/2024 Sex and Gender Information Value Date Recorded Sex Assigned at Not on file Legal Sex Male 6:44 AM EDT Gender Identity Not on file Sexual Orientation Not on file documented as of this encounter Functional Status * Is the person deaf or does he/she have serious difficulty hearing? Answer Date of Assessment Author No 01/09/2024 7:58 AM EDT Eduarda Castellon MA * Is the person blind or does he/she have serious difficulty seeing even when wearing glasses? Answer Date of Assessment Author No 01/09/2024 7:58 AM EDT Eduarda Castellon MA * Does this person have serious difficulty walking or climbing stairs? Answer Date of Assessment Author No 01/09/2024 7:58 AM EDT Eduarda Castellon MA * Does this person have difficulty dressing or bathing? Answer Date of Assessment Author No 01/09/2024 7:58 AM EDT Eduarda Castellon MA * Because of a physical, mental or emotional condition, does this person have difficulty doing errands alone such as visiting a doctor's office or shopping? Answer Date of Assessment Author No 01/09/2024 7:58 AM EDT Eduarad Castellon MA documented as of this encounter Mental Status * Because of a physical, mental or emotional condition, does this person have serious difficulty concentrating, remembering or making decisions? Answer Entry Date Author No 01/09/2024 7:58 AM EDT Eduarda Castellon MA documented in this encounter Miscellaneous Notes * Telephone Encounter - Maria Guadalupe Castellon MA - 09/23/2024 12:47 PM EDT Patient aware. * Telephone Encounter - Eulogio Proctor DO - 09/23/2024 12:08 PM EDT OTC Dayquil gel caps for cough/fever/sore throat /congestion and can use plain Robitussin or mucinex for cough/drainage if needed * Telephone Encounter - Misty Kwok - 09/23/2024 11:19 AM EDT Pt called stating he is experiencing sore throat, cough and congestion x2 days Pt requesting advice/asking what he can take OTC? He is a heart patient * Telephone Encounter - Makayla Jordan - 09/23/2024 11:00 AM EDT Select the most appropriate reason for this telephone message: Symptoms Call Who is reporting the symptoms: Patient What symptom(s) is the patient experiencing: sore throat, cough and congestion /he is a heart patient and unsure what he can take OTC How long have symptoms been present: 2 day(s) ago Has the patient been seen for this:No If no, was an appointment/E-Visit offered/suggested? Yes, wanted to send a message to see what he can take OTC Has the patient tried anything to relieve the symptoms and did it help: No If pain, what level on scale 1-10 (10 being the greatest): 3 sore throat Desired Outcome: Advice/asking what he can take OTC? He is a heart patient Pharmacy & Location:[facility] [id number] [place] [address] [address] [address] - [phone] Return Method of Communication: Phone Call Was patient transferred to Nurse Triage for additional help? N/A Additional Information: N/A documented in this encounter Plan of Treatment Upcoming Encounters Date Type Department Care Team (Late st Contact Info) Description 01/02/2025 11:45 AM EDT Office Visit [facility] D[facility] [address] [facility] [address] [place] [id number] Aneudy Lanier MD [address] [place] [address] documented as of this encounter Goals Goal Patient Goal Type Associated Problems Recent Progress Patient-Stated? Author Blood Pressure < 140/90 Blood Pressure 120/74(2023 8:47 AM EDT) No Karina Morton PA-C Maintain a healthy diet, exercise regularly and maintain an ideal body weight General No Nela Sam H, RMA Stay Tobacco Free Lifestyle No Nela Sam RMA LDL Direct < 130 Result Component No Karina Morton PA-C HEMOGLOBIN A1C < 7.0 Result Component No Karina Morton PA-C documented as of this encounter Visit Diagnoses Not on filedocumented in this encounter Additional Health Concerns Assessment Noted Time A fall risk assessment has been complete d for the patient 12/19/2022 1:09 PM EDT documented as of this encounter Care Teams Microwave Engineer Relationship Specialty Start Date End Date Eulogio Proctor DO [address] [place] [phone] PCP - General Internal Medicine 12/12/14 documented as of this encounter
--- OUTSIDE RECORDS SUMMARY | 2024-12-04 12:03 | XMS_ITS | Encounter Summary ---
Author Organization Healthcare Address [address] [id number] Care Team Providers Care Board Certified Behavioral Analyst Name Role Phone Eulogio Proctor Booker Primary Care Provider [phone] Reason for Referral * Consultation (Routine) - Closed Specialty Diagnoses / Procedures Referred By Contac t Referred To Contact Dentist / Pain Medicine Diagnoses Obstructive sleep apnea (adult) (pediatric) Le Hernandez MD [address] [facility] [address] [place] [address] Phone: tel: fax: [facility] [address] [place] [address] Phone: tel: fax: Referral ID Status Reason Start Date Expiration Date Visits Re quested Visits Authorized [id number] Closed 02/03/2023 08/04/2024 1 1 Encounter Details Date Type Department Care Team (Late st Contact Info) Description 02/03/2023 Community [facility] [address] [place] [address] Le Hernandez MD [address] [facility] [address] [place] [address] Obstructive sleep apnea (adult) (pediatric) (Primary Dx) Social History Tobacco Use Types Packs/Day Years Used Date Smoking Tobacco: Never Assessed Sex and Gender Information Value Date Recorded Sex Assigned at Not on file Legal Sex Male 2:57 PM EDT Gender Identity Not on file Sexual Orientation Not on file documented as of this encounter Plan of Treatment Scheduled Referrals Name Type Priority Associated Diagnoses Order Schedule Ambulatory Referral to O[facility]facial Pain Outpatient Referral Routine Obstructive sleep apnea (adult) (pediatric) Expected: 02/03/2023 (Approximate), Expires: 08/06/2024 documented as of this encounter Visit Diagnoses Diagnosis Obstructive sleep apnea (adult) (pediatric)- Primary documented in this encounter Care Teams Board Certified Behavioral Analyst Relationship Specialty Start Date End Date Eulogio Proctor DO [address] [address] [address] [place] [address] PCP - General 07/17/23 documented as of this encounter
[2024-12-04 12:36] LABS: Basophils # 0.1 K/mm3 (0-0.2); Basophils % 0.7 % (0.1-2.0); Eosinophils # 0.2 Kmm3 (0.0-0.4); Eosinophils % 2.6 % (0.1-12.0); Hematocrit 44.3 % (42.0-52.0); Hemoglobin 13.8 g/dL (14.1-18.0); Immature Granulocytes # 0.05 10^3uL; Immature Granulocytes % 0.6 %; Lymphocytes % 24.4 % (10-50); Mean Corpuscular HGB Conc 31.2 g/dL (31.8-35.4); Mean Corpuscular Hemoglobin 27.8 pg (27.0-31.2); Mean Corpuscular Volume 89.3 fl (80-94); Mean Platelet Volume 10.7 fl (7.4-10.4); Monocytes # 0.4 K/mm3 (0.1-1.0); Monocytes % 4.7 % (1.7-9.3); Neutrophils # 5.6 K/mm3 (1.8-7.8); Nucleated Red Blood Cells # 0 10^3/uL; Nucleated Red Blood Cells % 0 %; Platelet Count 262 K/mm3 (142-424); Red Blood Count 4.96 M/mm3 (4.60-6.20); Red Cell Distribution Width 14.7 % (11.5-17.5); Red Cell Distribution Width-SD 46.7 fL; White Blood Count 8.3 K/mm3 (4.8-10.8)
[2024-12-04 13:17] LABS: Albumin Level 4.3 g/dl (3.5-5.0); Chloride 99 mmol/L (98-107); Sodium 140 mmol/L (136-145)
[2024-12-04 13:19] LABS: Bilirubin,Unconjugated 0.3 mg/dL (0.0-1.1); Blood Urea Nitrogen 16 mg/dl (9-20); Carbon Dioxide 30 mmol/L (22.0-30.0); Estimated Glomerular Filt Rate 84 ml/min (>60); GFR (African American) 102 ML/MIN (>60)
[2024-12-04 13:20] LABS: Alanine Aminotransferase 21 U/L (12-78); Alkaline Phosphatase 98 U/L (38-126); Aspartate Amino Transferase 25 U/L (17-59); Bilirubin,Direct 0.2 mg/dl (0.0-0.4); Bilirubin,Indirect 0.3 mg/dL (0.0-0.9); Bilirubin,Total 0.5 mg/dl (0.2-1.3); Calcium 9.1 mg/dl (8.4-10.2); Chol/HDL Ratio 2.5 (1-3.5); Cholesterol 139 mg/dl (140-200); Glucose 106 mg/dl (74-100); HDL Cholesterol 56 mg/dl (40-60); Magnesium 2.1 mg/dl (1.6-2.3); Triglycerides 51 mg/dl (30-150); VLDL Cholesterol 10 mg/dL (0-40)
[2024-12-04 13:31] LABS: Direct LDL Cholesterol 57.45 mg/dL (100-129)
[2024-12-04 13:36] LABS: Free T4 (Free Thyroxine) 1.42 ng/dl (0.78-2.19)
[2024-12-04 13:51] LABS: Thyroid Stimulating Hormone 0.39 uIU/mL (0.465-4.68)
== END 2024-12-04 23:59 | disposition home or self-care (01) ==
LOC: LAB 12:01
PROVIDERS: PCP Internal Medicine; Visit Provider Internal Medicine
DX: I25.10 Atherosclerotic heart disease of native coronary artery without angina pectoris (principal)
CPT/HCPCS: 36415; 80048; 80061; 80076; 83735; 84439; 84443; 85025

== ENCOUNTER 2025-01-08 09:52 | Outpatient (CLI) | payer MEDICARE, SELFPAY ==
--- OUTSIDE RECORDS SUMMARY | 2025-01-08 09:55 | XMS_ITS | Clinical Summary ---
Author Organization [facility] Address [address] [place] [address] Phone Care Team Providers Care Nuclear Operations Specialist Name Role Phone Nirav Shelton MD [phone] Conditions or Problems Problem Name Problem Code Onset Date Status Entry Date Provider Comment Standard Description Annotate LUMBAR STENOSIS, L1-L5, W/O NEUROGENIC CLAUDICATION M48.061 (ICD-10-CM ) 01/14 Active 01/14 Nina Pinto Spinal stenosis, lumbar region without neurogenic claudication Obstructive sleep apnea 03626544 (SNOMED CT) 10/23 Active 01/08 Nina Pinto Obstructive sleep apnea syndrome Imported from [facility]: [facility] ( at 11:44:33 AM) Hypoxemia 143649244 (SNOMED CT) 10/23 Active 01/08 Nina Pinto Hypoxemia Imported from [facility]: [facility] ( at 11:44:33 AM) History of spinal stenosis Z87.39 (ICD-10-CM ) 08/31 Active 01/08 Nina Pinto Personal history of other diseases of the musculoskeletal system and connective tissue Imported from [facility]: [facility] ( at 11:44:33 AM) Medications Medication Instructions Start Date Stop Date Generic Name [facility] Provider SILDENAFIL CITRATE 100 MG TABS Take 1/2-1 whole tab daily prn. 6 sildenafiL (VIAGRA) 100 mg Oral Tablet [id number] Nina Pinto multivit-min/F A/lycopen/lute in (CENTRUM SILVER MEN ORAL) Take by mouth daily. multivit-min/ FA/lycopen/viviane tein (CENTRUM SILVER MEN ORAL) Nina Pinto DICLOFENAC SODIUM 75 MG TBEC Take 1 Tab by mouth 2 times daily (with meals). 9 diclofenac (VOLTAREN) 75 mg Oral Tablet, Delayed Release (E. [id number] Nina Pinto Medications Administered No information available. [...]
--- OUTSIDE RECORDS SUMMARY | 2025-01-08 09:55 | XMS_ITS | Encounter Summary ---
Author Organization Healthcare Address [address] [id number] Care Team Providers Care Dishtank Operator Name Role Phone Eulogio Proctor Booker Primary Care Provider [phone] Reason for Referral * Consultation (Routine) - Closed Specialty Diagnoses / Procedures Referred By Contac t Referred To Contact Dentist / Pain Medicine Diagnoses Obstructive sleep apnea (adult) (pediatric) Le Hernandez MD [address] [facility] [address] [place] [address] Phone: tel: fax: [facility] Room [address]214 [address] [place] [address] Phone: tel: fax: Referral ID Status Reason Start Date Expiration Date Visits Re quested Visits Authorized [id number] Closed 02/03/2023 08/04/2024 1 1 Encounter Details Date Type Department Care Team (Late st Contact Info) Description 02/03/2023 [facility] [address] [place] [address] Le Hernandez MD [address] [facility] [address] [place] [address] Obstructive sleep apnea [...] Primary documented in this encounter Care Teams Dishtank Operator Relationship Specialty Start Date End Date Eulogio Proctor DO [address] [address] [address] [place] [address] PCP - General 07/17/23 documented as of this encounter
--- OUTSIDE RECORDS SUMMARY | 2025-01-08 09:56 | XMS_ITS | Encounter Summary ---
Author [place] [address] Care Team Providers Care Wheel Assembler Name Role Phone ProctorMarkun Booker Primary Care Provider Encounter Details Date Type Department Care Team (Late st Contact Info) Description 12/24/2014 Orders Only SEP Gastro [facility] [address] [place] [address] Jose Juan Black MD [address] [place] [address] Social History Tobacco Use Types Packs/Day Years [...] Care Team (Late st Contact Info) Description 04/21/2025 11:30 AM EST Office Visit SEP Dermatology [facility] [address] [place] [address] [address] [place] [address] Aneudy Lanier MD [address] [place] [address] documented as of this encounter Goals Goal [...] 12/24/2014 12:3 0 PM EDT Impressions [facility] - 12/24/2014 1:13 PM EDT Polyp [...] ORDERABLES Fin al Result Performing Organization Address City/State/[facility] Co de Phone Number [facility] [address] [place] [address] documented in this encounter Visit Diagnoses Not on filedocumented in this encounter Additional Health Concerns Infection Onset Date Last Indicated Resolved Time R/O C-Diff 12/20/2022 12/20/2022 12/20/2022 8:34 PM EDT documented as of this encounter Care Teams Wheel Assembler Relationship Specialty Start Date End Date Eulogio Proctor DO [address] [address] [address] [place] [address] PCP - General Internal Medicine 12/12/14 documented as of this encounter
--- OUTSIDE RECORDS SUMMARY | 2025-01-08 09:56 | XMS_ITS | Encounter Summary ---
Author Organization [facility] Address [address] [place] [address] Care Team Providers Care Social Science Research Assistant Name Role Phone Mark Proctorun BookerClarence FARLEY Primary Care Provider [phone] Encounter Details Date Type Department Care Team (Late st Contact Info) Description 12/15/2022 Orders Only Laboratory [address], [place] [address] Miki Escobar MD [email or web address] [address] [place], [place] [address] Primary osteoarthritis of right hip (Primary Dx); [...] inhibitor combinations, relevant cephalosporins, and carbapenems. (H) [facility] Swab (Nasal Left) 12/15/2022 2:48 PM EDT 12/15/2022 9:21 PM EDT Miki Escobar MD MICROBIOLOGY - NON-BLOOD FLUIDS AND OTHER Final Result Performing Organization Address [facility] de Phone Number [facility] [address] * HGB, A1C (GLYCOHEMOGLOBIN) (12/15/2022 2:48 PM EDT) Hgb A1C 5.1 4.0 - 5.6 % [facility] Comment: Reference Ranges for Hgb [...] Glycohemoglobin Standardization program (NGSP) and traceable to [facility]. Estimated Average Glucose 100 68 - 114 mg/dL [facility] Whole Blood 12/15/2022 2:48 PM EDT 12/15/2022 6:46 PM EDT Miki Escobar MD CHEMISTRY ORDERABLES Alisia l Result Performing Organization Address [facility] Co de Phone Number [facility] [address] * URINE CULTURE TUBE COLLECTION (12/15/2022 2:48 PM EDT) Pathologist [facility] Urine Culture Pending Culture not Indicated [facility] Urine 12/15/2022 2:48 PM EDT 12/15/2022 6:05 PM EDT Miki Escobar MD URINE ORDERABLES Final Re sult Performing Organization Address [facility] Co de Phone Number [facility] [address] * URINALYSIS WITH REFLEX TO CULTURE (12/15/2022 2:48 PM EDT) Color, UA Yellow Yellow,Straw [facility] Clarity, UA Clear Clear [facility] Glucose, UA Negative Negative mg/dL [facility] Bilirubin, UA Negative Negative [facility] TER[facility] Ketones, UA Negative Negative mg/dL [facility] Spec Grav, UA 1.013 1.005 - 1.035 [facility] Blood, UA Negative Negative [facility] [facility] pH, Urine 6.0 5.0 - 8.0 [facility] Protein, UA Negative Negative mg/dL [facility] Urobilinogen, UA <2.0 <2.0 mg/dL [facility] Nitrite, UA Negative Negative [facility] Leukocyte esterase UA Negative Negative [facility] Urine 12/15/2022 2:48 PM EDT 12/15/2022 6:06 PM EDT Narrative [facility] - 12/15/2022 6:28 PM EDT Microscopic testing is not performed when the dipstick is negative for blood, leukocyte, protein and nitrite. Miki Escobar MD URINE ORDERABLES Final Re sult Performing Organization Address [facility] Co de Phone Number [facility] [address] * TYPE AND SCREEN (12/15/2022 2:48 PM EDT) ABORh O [facility] [facility] Rh Type Negative [facility] Blood 12/15/2022 2:48 PM EDT 12/15/2022 4:32 PM EDT Miki Escobar MD BLOOD BANK TEST ORDERABLE S Final Result Performing Organization Address [facility] de Phone Number [facility] [address] * (ABNORMAL) PT (PRO TIME INCLUDES INR) (12/15/2022 2:48 PM EDT) Protime 17.5(H) 10.3 - 13.9 seconds [facility] INR 1.4(H) 0.9 - 1.1 [facility] Comment: RECOMMENDED THERAPEUTIC RANGES USING INR : Stable Oral Anticoagulant Therapy: 2.0 - 3.0 Mechanical Prosthetic Heart Valve: 2.5 - 3.5 Recurrent Acute Myocardial Infarction: 2.5 - 3.5 Plasma 12/15/2022 2:48 PM EDT 12/15/2022 5:54 PM EDT Miki Escobar MD HEMATOLOGY ORDERABLES Fin al Result Performing Organization Address [facility] de Phone Number [facility] [address] * APTT (12/15/2022 2:48 PM EDT) PTT 36.4 23.1 - 37.6 seconds [facility] Plasma 12/15/2022 2:48 PM EDT 12/15/2022 5:54 PM EDT Miki Escobar MD HEMATOLOGY ORDERABLES Fin al Result Performing Organization Address [facility] de Phone Number [facility] [address] * (ABNORMAL) BASIC METABOLIC PANEL (BMP=EP1) (12/15/2022 2:48 PM EDT) Sodium 142 135 - 146 mmol/L [facility] Potassium 3.9 3.5 - 5.1 mmol/L [facility] Chloride 107 98 - 110 [...] mL/min/1.73m2. Calcium 8.8 8.5 - 10.5 mg/dL [facility] Comment:Effective 10/13/2022, the calcium reference range has been updated. BUN/Creatinine Ratio 19 [facility] Serum (Serum) 12/15/2022 2:4 8 PM EDT 12/15/2022 7:56 PM EDT us Miki Escobar MD CHEMISTRY ORDERABLES Alisia l Result [facility] [address] * (ABNORMAL) CBC WITH DIFFERENTIAL (12/15/2022 2:48 PM EDT) WBC 5.74 3.80 - 10.80 10*3/uL [facility] RBC 4.18(L) 4.20 - 5.80 10*6/uL [facility] Hemoglobin 13.4 13.2 - 17.1 g/dL [facility] Hematocrit Blood 39.2(L) 40.0 - 51.0 % [facility] MCV 93.8 80.0 - 100.0 fL [facility] MCH 32.1 27.0 - 33.0 pg [facility] MCHC 34.2 30.0 - 36.0 g/dL [facility] RDW 13.6 11.0 - 15.0 % [facility] Platelets 134(L) 140 - 400 10*3/uL [facility] MPV 11.9 9.0 - 13.0 fL [facility] Whole Blood 12/15/2022 2:48 PM EDT 12/15/2022 6:46 PM EDT us Miki Escobar MD HEMATOLOGY ORDERABLES Fin al Result [facility] [address] documented in this encounter Visit Diagnoses Diagnosis Osteoarthritis of right hip, unspecified osteoarthritis type Osteoarthritis of right hip, unspecified osteoarthritis type documented in this encounter Care Teams Social Science Research Assistant Relationship Specialty Start Date End Date Eulogio Proctor DO [address] [facility] [address] [place] [address] PCP - General Internal Medicine 12/27/22 documented as of this encounter
--- OUTSIDE RECORDS SUMMARY | 2025-01-08 09:56 | XMS_ITS | Clinical Summary ---
Author Organization [facility] Address [address] [place], [place] [address] Care Team Providers Care Model Engine Mechanic Name Role Phone Eulogio Proctor DO Primary Care Provider [phone] Allergies Active Allergy Reactions Criticality Noted Date [...] daily as needed for Erectile Dysfunction. Active uu-[id number] -lycopen-lutein (Centrum Silver Men) 241-23-027-300 mcg Tablet Take 1 Tablet by mouth [...] Planning 06/12/2024 Depression Screening 06/12/2024 Influenza Vaccination (#1) 2025 RSV Vaccines (1 - 1-dose 75+ series) 02/21/2031 Medical Devices Implanted Type Area Medical Records Coordinator Device Identifier Shelf Expiration Date Model / Serial / Lot Delt Cer Hd 05/25 36mm +5 - [id number] Implanted:Qty: 1 on 12/27/2022 by Miki Escobar MD at [facility] Right: Hip [employer] \T\ [employer] 10/10/2027 [id number] / / [id number] [place] Altrx Polyethylene Acetabular Liner Neutral 36mm Id X 58mm Od - [id number] Implanted:Qty: 1 on 12/27/2022 by Miki Escobar MD at [facility] Right: Hip * J \T\ J DEPUY 08/10/2027 [id number] / / [id number] Femoral Stem 05/25 Taper Actis Duofix Hip Prosthesis Cementless Size 6 Std Collar - [id number] Implanted:Qty: 1 on 12/27/2022 by Miki Escobar MD at [facility] Right: Hip * J \T\ J DEPUY 09/09/2032 [id number] / / [id number] Cup Acetab Sector 58mm - [id number] Implanted:Qty: 1 on 12/27/2022 by Miki Escobar MD at [facility] Right: Hip * J \T\ J DEPUY 08/09/2032 [id number] / / [id number] Hip Ceramic On Poly - [id number] Implanted:Qty: 1 on 12/27/2022 by Miki Escobar MD at [facility] Right: Hip [employer] \T\ [employer] [id number] / / Procedures Procedure Name Priority Date/Time Associated Diagnosis Comments MSK OUTCOME SCORES Routine 12/28/2024 1:05 AM EDT from Last 3 Months Results * MSK OUTCOME SCORES (12/28/2024 1:05 AM EDT) 12/28/2024 1:05 AM EDT us External Provider RESULTABLE ONLY ORDERS Final R esult [facility] [address] from Last 3 [place] [phone] ON LICENSE OF [facility] Advance Directives For more information, please contact: [phone] * Full Code (Latest Code Status on File) Date Activated Date Inactivated Comments 12/27/2022 12:22 PM No automated chest compression devices for VAD Patients Care Teams Model Engine Mechanic Relationship Specialty Start Date End Date Eulogio Proctor DO [address] [address] [address] [place] [address] PCP - General Internal Medicine 12/27/22
--- OUTSIDE RECORDS SUMMARY | 2025-01-08 09:56 | XMS_ITS | Clinical Summary ---
Author Organization Healthcare Address [address] [place] [address] Care Team Providers Care Complaint Adjuster Name Role Phone Eulogio Proctor DO Primary Care Provider [phone] Allergies Active Allergy Reactions Criticality Noted Date [...] Medical History Relation Name Comments Cancer Father Salzaar Hernandez Heart disease Mother Angela Hernandez Relation [...] 02/21/2001 [facility]-Zoster Vaccines (1 of 2) 02/21/2006 [id number] Vaccine (3 - season) 2024 09/28/2020, 08/26/2020 [facility]-Influenza Vaccine (#1) 2025 [facility]-RSV Vaccine: 60+ Years or (1 [...] patient's age to complete this topic Insurance [facility] MEDICARE Care Teams Complaint Adjuster Relationship Specialty Start Date End Date Eulogio Proctor DO [address] [address] [address] [place] [address] PCP - General 07/17/23
--- OUTSIDE RECORDS SUMMARY | 2025-01-08 09:56 | XMS_ITS | Clinical Summary ---
Author Organization [facility] Address [address] [facility] [address] [place] [address] Phone Care Team Providers Care Montessori Toddler Teacher Name Role Phone ProctorEulogio carpenter Primary Care Provider [phone] Allergies Active Allergy Reactions Criticality Noted Date [...] (09/01/2022): Added automatically from request for surgery [id number] Calculus of ureterovesical junction (UVJ) 2022 Essential hypertension 08/31/2022 Atrial fibrillation with RVR 08/31/2022 NICM (nonischemic cardiomyopathy) 08/31/2022 Chronic HFrEF (heart failure with reduced ejection fraction) 08/31/2022 Strain of left Achilles tendon 12/21/2021 Strain of Achilles tendon, left, initial encount er 11/22/2021 Spinal stenosis of lumbar re gion without neurogenic claudication 01/14/2021 Obstructive sleep apnea Hypoxemia History of spinal stenosis Immunizations Immunization Administration Dates Next Due Pneumococcal Conjugate Vaccine 20 Valent 024 Surgical History Surgery Date Site/Laterality Comments TONSILLECTOMY SKIN GRAFT as child for luevano CHOLECYSTECTOMY, LAPAROSCOPIC 07/28/2011 N/A LAPAROSCOPIC CHOLECYSTECTOMY; Surgeon: Rosalio Nelson MD; Location: [facility] OR; Service: General VASECTOMY VASECTOMY REVERSAL COLONOSCOPY ACHILLES TENDON SURGERY 02/18/2015 Foot/Right RIGHT ACHILLES TENDON REPAIR RECONSTRUCTION WITH FLEXOR HALLUCIS LONGUS TENDON TRANSFER AND EXCISION OF KIAN'S DEFORMITY ; Surgeon: Krzysztof Phipps MD; Location: [facility]; Service: Orthopedics Medical devices from this surgery are in the Medical Devices section. ACHILLES TENDON SURGERY 02/18/2015 Foot/Right Surgeon: Krzysztof Phipps MD; Location: [facility]; Service: Orthopedics Medical devices from this [...] Headache Essential hypertension 08/31/2022 NICM (nonischemic cardiomyopathy) (HCC) Chronic HFrEF (heart failure with reduced ejection fraction) ([facility]) 08/31/2022 Family History Medical History Relation Name Comments Cancer Father lung Lung Cancer Father Elevated Lipids Mother Heart Disease Mother cabg High Cholesterol Mother Stroke Mother Cancer Paternal Grandmother lung Anesth Problems Neg Hx Relation Name Status Comments Brother Alive Father (Age 62) 195 Mother Alive Paternal Grandmother Social History Tobacco [...] 11:30 AM EST Office Visit SEP Dermatology [facility] [address] [facility] [address] [place] [address] Aneudy Lanier MD [address] [place] [address] Health Maintenance Due Date Last Done Comments DTaP/TDaP/Td (1 - Tdap) 02/21/1975 Cologuard 02/21/2001 FIT 02/21/2001 Sigmoidoscopy 02/21/2001 Virtual Colonography 02/21/2001 Zoster (1 of 2) 02/21/2006 RSV or 60+ (1 - Ris k 60-74 years 1-dose series) 2016 AAA Screening 02/21/2021 COVID-19 Vaccine (3 - 2023-2 5 season) 2024 09/28/2020, 08/26/2020 Colon Cancer Screening 12/24/2024 Colonoscopy 12/24/2024 12/24/2014 Wellness Exam Medicare 01/09/2025 01/09/2024 Influenza Vaccine (#1) 2025 Hepatitis C Screening Completed 11/25/2016 , [...] Morton PA-C Medical Devices Implanted Type Area Clinical Research Specialist Device Identifier Shelf Expiration Date Model / Serial / Lot Screw Biocomposite 5.5mm 15mm - [id number] Implanted:Qty: 1 on 02/18/2015 by Krzysztof Phipps MD at [facility] Right: Foot AR[employer]X 12/09/2016 [id number] / [id number] / Speedbridge Achilles Mid-Subatance - [id number] Implanted:Qty: 1 on 02/18/2015 by Krzysztof Phipps MD at [facility] Right: Foot AR[employer]REX 12/09/2016 [id number] P / [id number] / Procedures Procedure Name Priority Date/Time Associated Diagnosis Comments HCV ANTIBODY SCREEN W/ REFLEX Routine 11/25/2016 9:40 AM EDT Low back pain Pain of left foot [facility] COLONOSCOPY Routine 12/24/2014 12:3 0 PM EDT from Last 3 Months or Most Recently Relevant to Health Maintenance Results * HEPATITIS C ANTIBODY - SCREENING (11/25/2016 9:40 AM EDT) Hep C Ab Negative Negative [facility] Blood specimen (specimen) 11/25/2016 9:40 AM EDT 11/28/2016 9:25 AM EDT us Alex Chang MD HEMATOLOGY ORDERABLES Fin al Result Performing Organization Address [facility] de Phone Number [facility] [address] [place] [address] * [facility] COLONOSCOPY (12/24/2014 12:30 PM EDT) 12/24/2014 12:3 0 PM EDT Impressions [facility] - 12/24/2014 1:13 PM EDT [...] ORDERABLES Fin al Result Performing Organization Address [facility] de Phone Number [facility] [address] [place] [address] from Last 3 Months or Most Recently Relevant to Health Maintenance Insurance AMEE PAT MR [employer] AMEE NEWELLKEIKOAMY MR AMEE PAT MR Advance Directives For more information, please contact: [phone] * Full Code (Latest Code Status on File) Date Activated Date Inactivated Comments 08/31/2022 7:22 PM 09/01/2022 3:22 PM Care Teams Montessori Toddler Teacher Relationship Specialty Start Date End Date Eulogio Proctor DO [address] [address] [address] [place] [address] PCP - General Internal Medicine 12/12/14
--- NOTE | 2025-01-08 10:00 | US_ITS ---
FINAL REPORT CLINICAL HISTORY: Claudication, exsmoker, HTN, HLD, CAD, FINDINGS: Ankle-brachial indices were obtained. The right BRIAN is 1.65. The left BRIAN is 1.2. IMPRESSION: No significant arthrosclerosis on the left. The right side is noncompressible and cannot be evaluated. Reviewed, Interpreted and Dictated by Madeline Boss MD Transcribed by Shannon Mixon Authenticated and [facility]
== END 2025-01-08 23:59 | disposition home or self-care (01) ==
LOC: RT 09:54
PROVIDERS: PCP Internal Medicine; Visit Provider Internal Medicine
DX: I73.9 Peripheral vascular disease, unspecified (principal); I25.10 Atherosclerotic heart disease of native coronary artery without angina pectoris; I10 Essential (primary) hypertension; E78.5 Hyperlipidemia, unspecified; R94.31 Abnormal electrocardiogram [ECG] [EKG]; R09.89 Other specified symptoms and signs involving the circulatory and respiratory systems; Z87.891 Personal history of nicotine dependence; Z78.9 Other specified health status; Z95.5 Presence of coronary angioplasty implant and graft
CPT/HCPCS: 93923